=== PATIENT | female | born 1955 | race Two or more races ===

== ENCOUNTER 2024-04-11 09:05 | Emergency (ER) | payer MEDICARE, MEDICAID ==
[~2024-04-11] VITALS: Ht 152.4 cm; Wt 54.0 kg
[2024-04-11 11:02] LABS: Urine Bacteria None Seen /hpf (None Seen)
[2024-04-11 11:05] VITALS: BP 97/79; PULSE 95; RESP 18; TEMP 98; O2SAT 96
[2024-04-11 11:23] LABS: Basophils # (auto) 0 10 ^3/uL (0-0.2); Basophils % (auto) 0.4 % (0.0-2.0); Eosinophils # (auto) 0.1 10 ^3/uL (0-0.8); Eosinophils % (auto) 0.8 % (0.0-7.0); Hematocrit 42.5 % (36.0-46.0); Hemoglobin 14.3 g/dL (12.2-16.2); Lymphocytes # (auto) 1.3 10 ^3/uL (0.4-5.4); Lymphocytes % (auto) 21.1 % (10.0-50.0); Mean Corpuscular Hemoglobin 29.5 pg (28.0-32.0); Mean Corpuscular Hgb Conc. 33.6 g/dL (32.0-36.0); Mean Corpuscular Volume 87.8 fL (80.0-100.0); Monocytes # (auto) 0.3 10 ^3/uL (0-1.3); Monocytes % (auto) 4.9 % (0.0-12.0); Neutrophils # (auto) 4.4 10 ^3/uL (1.6-8.6); Neutrophils % (auto) 72.8 % (37.0-80.0); Nucleated Red Blood Cells % 0.1 %; Platelet Count (auto) 296 10^3/uL (140-450); Red Blood Cells 4.84 10^6/uL (4.0-5.20); Red Cell Distribution Width 15.2 % (11.8-14.3)
[2024-04-11 11:28] LABS: Urine Blood Negative /uL (Negative); Urine Clarity Turbid (Clear); Urine Color Yellow (Yellow); Urine Hyaline Cast FEW /lpf (0 - 2); Urine Mucus FEW (None Seen); Urine Protein, UAD TRACE (Negative); Urine Specific Gravity 1.024 (1.001-1.035); Urine Urobilinogen Normal (Negative); Urine WBC 4 /hpf (0 - 5); Urine pH 5.5 (5.0-9.0)
[2024-04-11] MEDS ORDERED: BACDST PO (11:40)
[2024-04-11] MEDS: HYDROcodone-ACET 5/325MG TAB PO ONE (11:40)
[2024-04-11] MEDS: cefTRIAXone SOD 1,000 MG VL IM ONE (11:40)
[2024-04-11] MEDS ORDERED: CEPH500C PO (11:40)
[2024-04-11] MEDS ORDERED: ALBU108A5 IN (11:40)
[2024-04-11] MEDS ORDERED: TRAM-626 PO (11:40)
--- NOTE | 2024-04-11 11:41 | ED.PDOC ---
WINE MANAGER HPI Comments A 68 YEAR OLD FEMALE PRESENTS TO THE ED WITH COMPLAINT OF VAGINAL REDNESS AND IRRITATION. PATIENT STATES SHE HAS A HISTORY OF CERVICAL CANCER, THE HAS DECLINED TO BE TREATED AT [facility]. PATIENT REPORTS SHE BEGAN TO EXPERIENCE VAGINAL REDNESS SKIN OPENINGS ABOUT 2 WEEKS AGO. PATIENT IS REQUESTING ANTIBIOTICS HERE IN THE ED. PATIENT DENIES DYSURIA, HEMATURIA, FEVER, CHILLS, SHORTNESS OF BREATH, CHEST PAIN, ABDOMINAL PAIN, NAUSEA, VOMITING, HEADACHE, OR OTHER COMPLAINTS. NO OTHER SYMPTOMS OR MODIFYING FACTORS AT THIS TIME. PATIENT IS ALERT, ORIENTED X 4, AND HAS STEADY GAIT. Chief Complaint: Vaginal Discharge Time Seen by MD: 10:11 Reviewed Notes: Nurses Notes, Medications, Allergies Allergies: Coded Allergies: NO KNOWN ALLERGIES (Unverified , 04/11/24) Home Meds Active Scripts Albuterol Sulfate (Albuterol Sulfate Hfa) 108 Mcg/Act Aer, 108 MCG IN TID, #120 AER Prov:MARIAELENA SIEGEL 04/11/24 Tramadol HCl (Tramadol HCl) 50 Mg Tab, 50 MG PO BID, #20 TAB Prov:MARIAELENA SIEGEL 04/11/24 Sulfamethoxazole W/Trimethopri (Bactrim Ds Tablet) 1 Tab Tb, 1 TAB PO BID, #20 TAB Prov:MARIAELENA SIEGEL 04/11/24 Cephalexin Monohydrate (Cephalexin) 500 Mg Cap, 1 CAP PO TID, #30 CAP Prov:MARIAELENA SIEGEL 04/11/24 Information Source: Patient Mode of Arrival: Wheelchair Timing: Days Prehospital treatment: None Severity: Moderate Vaginal Discharge: None Vaginal Lesions: None Vaginal Mass: None Onset Of Mass/Bleeding: Spontaneous Sexual Activity: Neither Last Consensual [place]: Unknown Control: None Blood Type: Unknown Symptoms of Possible : None Associated Signs and Symptoms: None Past Medical History PAST MEDICAL HISTORY: Asthma Past Medical History (Other): CERVICAL CANCER Surgical History: Denies all surgeries 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 Family History Family History: Reviewed,noncontributory to illness Social History Smoker: Cigarettes Alcohol: Denies ETOH Use Drugs: Denies Drug Use Lives In: Home Constitutional: denies: chills, diaphoresis, fatigue, fever, malaise, sweats, weakness, others EENTM: denies: blurred vision, double vision, ear bleeding, ear discharge, ear drainage, ear pain, ear ringing, eye pain, eye redness, hearing loss, mouth pain, mouth swelling, nasal discharge, nose bleeding, nose congestion, nose pain, photophobia, tearing, throat pain, throat swelling, voice changes, others Respiratory: denies: cough, hemoptysis, orthopnea, SOB at rest, shortness of breath, SOB with excertion, stridor, wheezing, others Cardiovascular: denies: chest pain, dizzy spells, diaphoresis, Dyspnea on exertion, edema, irregular heart beat, left arm pain, lightheadedness, palpitations, PND, syncope, others Gastrointestinal: denies: abdomen distended, abdominal pain, blood streaked bowels, constipated, diarrhea, dysphagia, difficulty swallowing, hematemesis, melena, nausea, poor appetite, poor fluid intake, rectal bleeding, rectal pain, vomiting, others Genitourinary: reports: pain (VAGINAL REDNESS AND PAIN); denies: abnormal vagina bleeding, burning, dyspareunia, dysuria, flank pain, frequency, hematuria, incontinence, , vagina discharge, urgency, others Neurological: denies: dizziness, fainting, headache, left sided numbness, left sided weakness, numbness, paresthesia, pre-existing deficit, right sided numbness, right sided weakness, seizure, speech problems, tingling, tremors, weakness, others Musculoskeletal: denies: back pain, gout, joint pain, joint swelling, muscle pain, muscle stiffness, neck pain, others Integumetry: reports: lesions, wounds; denies: bruises, change in color, change in hair/nails, dryness, laceration, lumps, rash, others Allergic/Immunocompromised: denies: Difficulty Healing, Frequent Infections, Hives, Itching, others Hematologic/Lymphatic: denies: anemia, blood clots, easy bleeding, easy bruising, swollen glands, others Endocrine: denies: excessive hunger, excessive sweating, excessive thirst, excessive urination, flushing, intolerance to cold, intolerance to heat, unexplained weight gain, unexplained weight loss, others Psychiatric: denies: anxiety, bipolar disorder, depression, hopeless, panic disorder, schizophrenia, sleepless, suicidal, others All Other Systems: Reviewed and Negative Physical Exam General Appearance: No Apparent Distress, Normal, Other (ANXIOUS ) HEENT: Normal ENT Inspection, PERRL/EOMI, Pharynx Normal, TMs Normal Neck: Full Range of Motion, Non-Tender, Normal, Normal Inspection Respiratory: Chest Non-Tender, Lungs Clear, No Accessory Muscle Use, No Respiratory Distress, Normal Breath Sounds Cardiovascular: No Edema, No JVD, No Murmur, No Gallop, Normal Peripheral Pulses, Regular Rate/Rhythm Breast Exam: Deferred Gastrointestinal: No Organomegaly, Non Tender, No Pulsatile Mass, Normal Bowel Sounds, Soft Genitalia: vagina lesion (MULTIPLE VAGINAL LESIONS WITH REDNESS AND SWELLING, NO PUS DRAINAGE AND DISCHARGE, NO VAGINAL DISCHARGE. ) Pelvic: Lesions (OLD VAGINAL LESIONS WITH LOCALIZED REDNESS AND MILD SWELLING, NO PUS DRAINAGE OR DISCHARGE. ) Rectal: Deferred Extremities: No calf tenderness, Normal capillary refill, Normal inspection, Normal range of motion, Non-tender, No pedal edema Musculoskeletal : Apperance: Normal Neurologic: Alert, rn hospital II-XII nml as Tested, No Motor Deficits, Normal Affect, Normal Mood, No Sensory Deficits Cerebellar Function: Normal Reflexes: Normal Skin: Dry, Normal Color, Warm Peripheral Pulses: 2+ carotid (R), 2+ carotid (L) Lymphatic: No Adenopathy Was a procedure done? 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) Vaginal Bleeding: N/A Mass / Lesion: Other Vaginal Discharge: UTI, Vaginitis - Bacterial, Vaginitis - Candidal, Vaginitis - Trichomonas X-Ray, Labs, Meds, VS Vital Signs Date Time Temp Pulse Resp B/P (MAP) Pulse Ox O2 Delivery O2 Flow Rate FiO2 04/11/24 11:05 98.0 95 18 97/79 (85) 96 98.0 04/11/24 11:05 95 18 96 Room Air 04/11/24 09:42 98.0 85 18 97/79 (85) 96 Lab Test 04/11/24 10:51 04/11/24 09:25 Range/Units White Blood Count 6.0 4.4-10.8 10^3/uL Red Blood Count 4.84 4.0-5.20 10^6/uL Hemoglobin 14.3 12.2-16.2 g/dL Hematocrit 42.5 36.0-46.0 % Mean Corpuscular Volume 87.8 80.0-100.0 fL Mean Corpuscular Hemoglobin 29.5 28.0-32.0 pg Mean Corpuscular Hemoglobin Concent 33.6 32.0-36.0 g/dL Red Cell Distribution Width 15.2 H 11.8-14.3 % Platelet Count 296 140-450 10^3/uL Mean Platelet Volume 7.7 6.9-10.8 fL Neutrophils (%) (Auto) 72.8 37.0-80.0 % Lymphocytes (%) (Auto) 21.1 10.0-50.0 % Monocytes (%) (Auto) 4.9 0.0-12.0 % Eosinophils (%) (Auto) 0.8 0.0-7.0 % Basophils (%) (Auto) 0.4 0.0-2.0 % Neutrophils # (Auto) 4.4 1.6-8.6 10 ^3/uL Lymphocytes # (Auto) 1.3 0.4-5.4 10 ^3/uL Monocytes # (Auto) 0.3 0-1.3 10 ^3/uL Eosinophils # (Auto) 0.1 0-0.8 10 ^3/uL Basophils # (Auto) 0 0-0.2 10 ^3/uL Nucleated Red Blood Cells 0.1 % Sodium Level Pending Potassium Level Pending Chloride Level Pending Carbon Dioxide Level Pending Anion Gap Pending Blood Urea Nitrogen Pending Creatinine Pending Glomerular Filtration Rate Calc Pending BUN/Creatinine Ratio Pending Serum Glucose Pending Calcium Level Pending Urine Color Yellow Yellow Urine Clarity Turbid H Clear Urine pH 5.5 5.0-9.0 Urine Specific [place] 1.024 1.001-1.035 Urine Protein Trace H Negative Urine Ketones Negative Negative Urine Blood Negative Negative /uL Urine Nitrite Negative Negative Urine Bilirubin Negative Negative Urine Urobilinogen Normal Negative mg/dL Urine Leukocyte Esterase 2+ Negative /uL Urine RBC 8 0 - 4 /hpf Urine WBC 4 0 - 5 /hpf Urine Squamous Epithelial Cells Few <5 /hpf Urine Bacteria None seen None Seen /hpf Urine Hyaline Casts Few 0 - 2 /lpf Urine Mucus Few None Seen Urine Glucose Normal Normal mg/dL Current Medications Medications (Trade) Dose Ordered Sig/Nic Route Start Time Stop Time Status Last Admin Ceftriaxone Sodium (Rocephin) 1,000 mg ONCE ONCE IM 04/11/24 11:45 04/11/24 11:46 DC 04/11/24 11:40 Acetaminophen/ Hydrocodone Bitart ([place] 5/325MG Tab) 1 tab ONCE ONCE PO 04/11/24 11:45 04/11/24 11:46 DC 04/11/24 11:40 X-Ray, Labs, Meds, VS Comment EXTERNAL NOTES: NONE LABS ORDERED: UA, WOUND CULTURE REVIEWED AND INTERPRETED RESULTS: NONE IMAGING ORDERED: NONE INDEPENDENT HISTORIANS: PATIENT'S DAUGHTER. TREATMENTS ORDERED: ROCEPHIN 1 G IM, NORCO 5/325 MG P.O. PATIENT'S CASE AND RESULTS HAVE BEEN DISCUSSED WITH THE ED ATTENDING PHYSICIAN AND THEY AGREE WITH MY PLAN OF CARE. PATIENT DECLINED TO BE ADMITTED AT THIS TIME SHE STATED SHE ONLY WANTED PAIN MEDICINE AND ANTIBIOTICS HERE IN THE ED. PATIENT WAS ALSO REQUESTING AN INHALER DUE TO HER HISTORY OF FREQUENT BRONCHITIS. I HAVE DISCUSSED LAB RESULTS WITH PATIENT AND HAVE INSTRUCTED THEM TO FOLLOW UP WITH THEIR PCP IN 1-2 DAYS. THE PATIENT FULLY UNDERSTANDS THEIR RESULTS AND ARE AWARE THEY NEED TO FOLLOW UP WITH THEIR PCP FOR FURTHER EVALUATION IF THEIR SYMPTOMS PERSIST. Time of 1ST Reevaluation: 12:00 Reevaluation 1ST: Improved Patient Education/Counseling: Diagnosis, Treatment, Need For Follow Up Family Education/Counseling: Diagnosis, Treatment, Need For Follow Up Medical Screening: No EMC Exist At This Time Departure 1 Departure Time of Disposition: 12:00 Impression: Primary Impression: Primary vaginal cancer Additional Impressions: Pain management Suspected soft tissue infection UTI (urinary tract infection) Qualified Codes: N30.00 - Acute cystitis without hematuria Disposition: HOME / SELF CARE / HOMELESS Condition: Stable Additional Instructions: FOLLOW-UP WITH PCP IN 1 TO 2 DAYS. TAKE MEDICATIONS PRESCRIBED. RETURN TO ED FOR ANY NEW OR WORSENING SYMPTOMS. e-Prescriptions Albuterol Sulfate (Albuterol Sulfate Hfa) 108 Mcg/Act Aer 108 MCG IN TID, #120 AER Prov: MARIAELENA SIEGEL 04/11/24 Tramadol HCl (Tramadol HCl) 50 Mg Tab 50 MG PO BID, #20 TAB Prov: MARIAELENA SIEGEL 04/11/24 Sulfamethoxazole W/Trimethopri (Bactrim Ds Tablet) 1 Tab Tb 1 TAB PO BID, #20 TAB Prov: MARIAELENA SIEGEL 04/11/24 Cephalexin Monohydrate (Cephalexin) 500 Mg Cap 1 CAP PO TID, #30 CAP Prov: MARIAELENA SIEGEL 04/11/24 Discharged With: Self, Relative Critical Care Note Critical Care Time?: No Stability Stability form required: No I personally scribed for MARIAELENA SIEGEL ([email or web address]) on 04/11/24 at 11:41. Electronically submitted by Arslan Fuentes ([email or web address]). MARIAELENA SIEGEL Apr 11, 2024 11:41
[2024-04-11 12:28] LABS: Chloride 105 mmol/L (98-107); Sodium 143 mmol/L (136-145)
[2024-04-11 12:29] LABS: Anion Gap 12 (5-15); Carbon Dioxide 26 mmol/L (20-31)
[2024-04-11 12:30] LABS: Calcium 10.3 mg/dL (8.7-10.4)
[2024-04-11 12:33] LABS: Potassium 3.3 mmol/L (3.5-5.1)
[2024-04-11] MEDS ORDERED: HYDR-4902 PO (12:33)
[2024-04-11 12:34] LABS: BUN/Creatinine Ratio 21.6 (10.0-20.0); Blood Urea Nitrogen 16 mg/dL (9-23)
[2024-04-11 12:36] LABS: Glucose 134 mg/dL (74-106)
== END 2024-04-11 11:53 | disposition home or self-care (01) ==
LOC: ER 09:05
DX: C52 Malignant neoplasm of vagina (principal); N89.8 Other specified noninflammatory disorders of vagina; N39.0 Urinary tract infection, site not specified; F17.210 Nicotine dependence, cigarettes, uncomplicated; J45.909 Unspecified asthma, uncomplicated; Z79.899 Other long term (current) drug therapy
CPT/HCPCS: 36415; 80048; 81001; 85025; 87070; 87077; 87186; 96372; 99283; J0696

== ENCOUNTER 2024-10-21 07:18 | Inpatient (IN) | payer MEDICARE, MEDICAID ==
[~2024-10-21] VITALS: Ht 152.4 cm; Wt 63.8 kg
[~2024-10-21 07:18] MED LIST: ALBU108A5 IN; BACDST PO; CEPH500C PO; HYDR-4902 PO
--- NOTE | 2024-10-21 09:14 | ED.PDOC ---
General HPI Comments 69 year old female with a Hx of Cancer and Asthma was BIB friend for the c/c of Bilateral Flank/Leg pain, and Dizziness. Pt states her symptoms have been onset for the past 4x days with no alleviating factors at this time. Pt also notes on pain and burning upon urination. No other associated symptoms, modifiers, recent injuries or sick contacts present at this time. Chief Complaint: Flank Pain Time Seen by MD: 09:10 Reviewed notes: Nurses Notes, Medications, Allergies Allergies: Coded Allergies: NO KNOWN ALLERGIES (Unverified , 04/11/24) Home Meds Active Scripts Hydrocodone-Acetaminophen (Hydrocodone Bitartrate/AC 5-325 mg) 1 Tab Tab, 1 TAB PO BID, #10 TAB Prov:MARIAELENA SIEGEL 04/11/24 Albuterol Sulfate (Albuterol Sulfate Hfa) 108 Mcg/Act Aer, 108 MCG IN TID, #120 AER Prov:MARIAELENA SIEGEL 04/11/24 Sulfamethoxazole W/Trimethopri (Bactrim Ds Tablet) 1 Tab Tb, 1 TAB PO BID, #20 TAB Prov:MARIAELENA SIEGEL 04/11/24 Cephalexin Monohydrate (Cephalexin) 500 Mg Cap, 1 CAP PO TID, #30 CAP Prov:MARIAELENA SIEGEL 04/11/24 Information Source: Patient Mode of Arrival: Ambulatory Severity: Moderate Inability to void: Mild Timing: Days Duration: Since onset, Days Has not urinated for: Hours Prehospital treatment: None Onset: Spontaneous Symptoms: Dysuria History of: None Location: (R) Flank, (L)Flank Modifying factors: None associated signs and symptoms: Flank Pain, Back Pain Past Medical History PAST MEDICAL HISTORY: Asthma, Cancer Surgical History: 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 Family History Family History: Reviewed,noncontributory to illness Social History Smoker: Cigarettes Alcohol: Denies ETOH Use Drugs: Denies Drug Use Lives In: Home Constitutional: denies: chills, diaphoresis, fatigue, fever, malaise, sweats, weakness, others EENTM: denies: blurred vision, double vision, ear bleeding, ear discharge, ear drainage, ear pain, ear ringing, eye pain, eye redness, hearing loss, mouth pain, mouth swelling, nasal discharge, nose bleeding, nose congestion, nose pain, photophobia, tearing, throat pain, throat swelling, voice changes, others Respiratory: denies: cough, hemoptysis, orthopnea, SOB at rest, shortness of breath, SOB with excertion, stridor, wheezing, others Cardiovascular: denies: chest pain, dizzy spells, diaphoresis, Dyspnea on exertion, edema, irregular heart beat, left arm pain, lightheadedness, palpitations, PND, syncope, others Gastrointestinal: denies: abdomen distended, abdominal pain, blood streaked bowels, constipated, diarrhea, dysphagia, difficulty swallowing, hematemesis, melena, nausea, poor appetite, poor fluid intake, rectal bleeding, rectal pain, vomiting, others Genitourinary: reports: dysuria, flank pain; denies: abnormal vagina bleeding, burning, dyspareunia, frequency, hematuria, incontinence, pain, , vagina discharge, urgency, others Neurological: denies: dizziness, fainting, headache, left sided numbness, left sided weakness, numbness, paresthesia, pre-existing deficit, right sided numbness, right sided weakness, seizure, speech problems, tingling, tremors, weakness, others Musculoskeletal: denies: back pain, gout, joint pain, joint swelling, muscle pain, muscle stiffness, neck pain, others Integumetry: denies: bruises, change in color, change in hair/nails, dryness, laceration, lesions, lumps, rash, wounds, others Allergic/Immunocompromised: denies: Difficulty Healing, Frequent Infections, Hives, Itching, others Hematologic/Lymphatic: denies: anemia, blood clots, easy bleeding, easy bruising, swollen glands, others Endocrine: denies: excessive hunger, excessive sweating, excessive thirst, excessive urination, flushing, intolerance to cold, intolerance to heat, unexplained weight gain, unexplained weight loss, others Psychiatric: denies: anxiety, bipolar disorder, depression, hopeless, panic disorder, schizophrenia, sleepless, suicidal, others All Other Systems: Reviewed and Negative Physical Exam General Appearance: Mild Distress, Normal, Obese, Other (Chornic ill appearing) HEENT: Normal ENT Inspection, Pharynx Normal, TMs Normal Neck: Full Range of Motion, Non-Tender, Normal Respiratory: Chest Non-Tender, Lungs Clear, No Accessory Muscle Use, No Respiratory Distress, Normal Breath Sounds Cardiovascular: No Edema, No JVD, Normal Peripheral Pulses, Regular Rate/Rhythm Breast Exam: Deferred Gastrointestinal: Non Tender, No Pulsatile Mass, Soft Genitalia: Deferred Pelvic: Deferred Rectal: Deferred Extremities: No calf tenderness, Normal range of motion, Non-tender, No pedal edema Musculoskeletal : Apperance: Normal Neurologic: Alert, No Motor Deficits, Normal Mood Cerebellar Function: Normal Reflexes: Normal Skin: Dry, Normal Color, Warm Lymphatic: No Adenopathy Was a procedure done? Was a procedure done?: No Differential Diagnosis Kidney stone (Female): Musculoskeletal pain, Pancreatitis, Renal failure, Urinary obstruction, Urolithiasis Urinary Problem (Female): Appendicitis, Impaction, Pyelonephritis, Urinary retention, Urolithiasis, UTI, Vaginitis X-Ray, Labs, Meds, VS Vital Signs Date Time Temp Pulse Resp B/P (MAP) Pulse Ox O2 Delivery O2 Flow Rate FiO2 10/21/24 11:00 97.4 67 18 142/93 (109) 97 97.4 10/21/24 08:54 70 18 10/21/24 08:54 98.8 70 18 128/92 (104) 94 98.8 10/21/24 08:06 97.6 80 18 135/91 (106) 95 97.6 Lab Test 10/21/24 10:00 10/21/24 09:00 Range/Units Urine Color Yellow Yellow Urine Clarity Clear Clear Urine pH 5.5 5.0-9.0 Urine Specific [place] 1.024 1.001-1.035 Urine Protein Negative Negative Urine Ketones Trace Negative Urine Blood Negative Negative /uL Urine Nitrite Negative Negative Urine Bilirubin Negative Negative Urine Urobilinogen Normal Negative mg/dL Urine Leukocyte Esterase 2+ Negative /uL Urine RBC 2 0 - 4 /hpf Urine Microscopic WBC 1 0-5 /HPF Urine Squamous Epithelial Cells Few <5 /hpf Urine Calcium Oxalate Crystals Few None Seen Urine Bacteria None seen None Seen /hpf Urine Hyaline Casts Few 0 - 2 /lpf Urine Mucus Few None Seen Urine Yeast (Budding) Occasional None Seen /hpf Urine Glucose Normal Normal mg/dL White Blood Count 6.9 4.4-10.8 10^3/uL Red Blood Count 5.00 4.0-5.20 10^6/uL Hemoglobin 14.8 12.2-16.2 g/dL Hematocrit 44.6 36.0-46.0 % Mean Corpuscular Volume 89.0 80.0-100.0 fL Mean Corpuscular Hemoglobin 29.6 28.0-32.0 pg Mean Corpuscular Hemoglobin Concent 33.2 32.0-36.0 g/dL Red Cell Distribution Width 15.5 H 11.8-14.3 % Platelet Count 306 140-450 10^3/uL Mean Platelet Volume 7.2 6.9-10.8 fL Neutrophils (%) (Auto) 74.4 37.0-80.0 % Lymphocytes (%) (Auto) 19.3 10.0-50.0 % Monocytes (%) (Auto) 4.4 0.0-12.0 % Eosinophils (%) (Auto) 1.4 0.0-7.0 % Basophils (%) (Auto) 0.5 0.0-2.0 % Neutrophils # (Auto) 5.1 1.6-8.6 10 ^3/uL Lymphocytes # (Auto) 1.3 0.4-5.4 10 ^3/uL Monocytes # (Auto) 0.3 0-1.3 10 ^3/uL Eosinophils # (Auto) 0.1 0-0.8 10 ^3/uL Basophils # (Auto) 0 0-0.2 10 ^3/uL Nucleated Red Blood Cells 0.0 % Sodium Level 143 136-145 mmol/L Potassium Level 3.6 3.5-5.1 mmol/L Chloride Level 109 H 98-107 mmol/L Carbon Dioxide Level 26 20-31 mmol/L Anion Gap 8 5-15 Blood Urea Nitrogen 14 9-23 mg/dL Creatinine 0.62 0.550-1.02 mg/dL Glomerular Filtration Rate Calc 96 >90 mL/min BUN/Creatinine Ratio 22.6 H 10.0-20.0 Serum Glucose 95 74-106 mg/dL Lactic Acid Level 1.3 0.4-2.0 mmol/L Calcium Level 10.2 8.7-10.4 mg/dL Time of 1ST Reevaluation: 09:40 Reevaluation 1ST: Unchanged Patient Education/Counseling: Diagnosis, Treatment Family Education/Counseling: Diagnosis, Treatment SEPSIS Sepsis Screen Date sepsis recognized/suspect: Oct 21, 2024 Time Sepsis recognized/suspect: 0734 Recent Procedure: No On Antibiotic Therapy: No Respiratory Rate >20: No Heart Rate >90: No Temp<36 C (96.8 F) or >38.3 C: No SBP <90 or MAP <65 mmHG: No New Acute Mental Status Change: No Is the patient on CPAP, BIPAP,: No Orders/Vitals/Labs Physician Orders Blood Culture (10/21/24 08:14) Ct Ab Pel With Iv Con Only (10/21/24 10:25) Vital Signs Date Time Temp Pulse Resp B/P (MAP) Pulse Ox O2 Delivery O2 Flow Rate FiO2 10/21/24 11:00 97.4 67 18 142/93 (109) 97 97.4 10/21/24 08:54 70 18 10/21/24 08:54 98.8 70 18 128/92 (104) 94 98.8 10/21/24 08:06 97.6 80 18 135/91 (106) 95 97.6 Laboratory Tests Test 10/21/24 09:00 Lactic Acid Level 1.3 mmol/L (0.4-2.0) White Blood Count 6.9 10^3/uL (4.4-10.8) Departure 1 Departure Time of Disposition: 11:43 (Patient presented with abdominal pain that was concerning for possible appendicits, gastritis, cholecystitis, colitis, gastroe nteritis, sbo, or orther possible surgical emergency. Data: 1. I ordered and reviewed the result of at least 3 labs including a CBC, BMP, and Urinalysis. 2. I independently interpreted the following tests: CT Abdoment and Pelvis is concerning for splenic artery aneurysm .Risk:This patient has a high risk of morbidity due to further diagnostic testing or treatment and may suffer from an acute abdominal process disorder. Workup reveals intractable abdominal pain and splenic artery aneurysm and patient should be admitted for further workup. and possible expert consultation. ) Impression: Primary Impression: Splenic artery aneurysm Additional Impression: Intractable abdominal pain Disposition: ADMITTED INPATIENT Admit to: Med Surg Condition: Guarded Critical Care Note Critical Care Time?: Yes Critical care comment: Intractable abdominal pain Authorized and Performed by: Kirk Dumont MD Total critical care time: Approximately 49 minutes Due to a high probability of clinically significant, life threatening deterioration, the patient required my highest level of preparedness to intervene emergently and I personally spent this critical care time directly and personally managing the patient. This critical care time included obtaining a history; examining the patient; pulse oximetry; ordering and review of studies; arranging urgent treatment with development of a management plan; evaluation of patient's response to treatment; frequent reassessment; and, discussions with other providers. This critical care time was performed to assess and manage the high probability of imminent, life-threatening deterioration that could result in multi-organ failure. It was exclusive of separately billable procedures and treating other patients and teaching time. Please see my other sections and the rest of the note for further information on patient assessment and treatment. Stability Stability form required: No Heart Score Heart Score: Heart Score Response (Comments) Value History N/A 0 EKG N/A 0 Age N/A 0 Risk Factors N/A 0 Troponin N/A 0 Total 0 I personally scribed for KIRK DUMONT MD ([email or web address]) on 10/21/24 at 09:14. Electronically submitted by Cliff Seaman ([email or web address]). KIRK DUMONT MD Oct 21, 2024 09:14
[2024-10-21 09:23] LABS: Basophils # (auto) 0 10 ^3/uL (0-0.2); Basophils % (auto) 0.5 % (0.0-2.0); Eosinophils # (auto) 0.1 10 ^3/uL (0-0.8); Eosinophils % (auto) 1.4 % (0.0-7.0); Hematocrit 44.6 % (36.0-46.0); Hemoglobin 14.8 g/dL (12.2-16.2); Lymphocytes # (auto) 1.3 10 ^3/uL (0.4-5.4); Lymphocytes % (auto) 19.3 % (10.0-50.0); Mean Corpuscular Hemoglobin 29.6 pg (28.0-32.0); Mean Corpuscular Hgb Conc. 33.2 g/dL (32.0-36.0); Monocytes # (auto) 0.3 10 ^3/uL (0-1.3); Monocytes % (auto) 4.4 % (0.0-12.0); Neutrophils # (auto) 5.1 10 ^3/uL (1.6-8.6); Neutrophils % (auto) 74.4 % (37.0-80.0); Platelet Count (auto) 306 10^3/uL (140-450); Red Cell Distribution Width 15.5 % (11.8-14.3); White Blood Cell 6.9 10^3/uL (4.4-10.8)
[2024-10-21 09:27] LABS: Potassium 3.6 mmol/L (3.5-5.1); Sodium 143 mmol/L (136-145)
[2024-10-21 09:28] LABS: Anion Gap 8 (5-15); Carbon Dioxide 26 mmol/L (20-31)
[2024-10-21 09:29] LABS: Calcium 10.2 mg/dL (8.7-10.4)
[2024-10-21 09:33] LABS: BUN/Creatinine Ratio 22.6 (10.0-20.0); Blood Urea Nitrogen 14 mg/dL (9-23); Glucose 95 mg/dL (74-106)
[2024-10-21 09:40] LABS: Chloride 109 mmol/L (98-107)
[2024-10-21 10:00] LABS: Urine Bacteria None Seen /hpf (None Seen)
[2024-10-21 10:12] LABS: Urine Blood Negative /uL (Negative); Urine Budding Yeast OCCASIONAL /hpf (None Seen); Urine Clarity Clear (Clear); Urine Color Yellow (Yellow); Urine Hyaline Cast FEW /lpf (0 - 2); Urine Mucus FEW (None Seen); Urine Protein, UAD Negative (Negative); Urine Specific Gravity 1.024 (1.001-1.035); Urine Squamous Epithelial Cell FEW /hpf (<5); Urine Urobilinogen Normal (Negative); Urine WBC 1 /HPF (0-5); Urine pH 5.5 (5.0-9.0)
--- NOTE | 2024-10-21 11:19 | DVH ---
Exam: CT CT AB PEL WITH IV CON ONLY History: flank pain, COMPARISON: None Technique: Multidetector spiral CT of the abdomen and pelvis was performed from lung bases to pubic symphysis. Intravenous contrast was administered during this examination. Portal venous imaging was obtained. Axial, coronal and sagittal multiplanar reformats were performed by the technologist on a separate workstation. Radiation Dose : Abdomen/Pelvis: CTDIvol 8.14 mGy, DLP 363.74 mGy*cm. CONTRAST: Type of contrast: Omni 300 Contrast injected: 100 mL Findings: Lung Bases: No acute or significant lung base finding. Normal heart size. No pleural or pericardial effusion. Liver: Subcentimeter left hepatic cyst. Hypodensity along the falciform ligament likely represents fo elisabeth fatty infiltration. Gallbladder and biliary Tree: Cholelithiasis noted without secondary findings of cholecystitis or pedro pablo iary obstruction. Spleen: Unremarkable Pancreas: The pancreas is normal in appearance without focal lesions or abnormal enhancement. Adrenal Glands: Unremarkable Kidneys: No hydronephrosis. Bladder: Unremarkable Bowel: The stomach is grossly normal in appearance. Small bowel and colon are normal in caliber and d istribution. Normal appendix is visualized in the right lower quadrant without findings of appendicit is. Ascites: Absent Lymphadenopathy: No mesenteric, retroperitoneal or periportal lymphadenopathy. Abdominal wall and Mesentery: Unremarkable. Vasculature: Peripherally calcified distal splenic artery aneurysm measuring up to 15 mm. Possible 2n d splenic artery aneurysm measuring subcentimeter. Pelvic Organs: Unremarkable Musculoskeletal: Grade 1 anterolisthesis of L4 on L5 and L5 on S1. Multilevel degenerative disease. IMPRESSION: 1. No acute abdominal or pelvic finding. 2. Left hepatic cysts. Likely focal fatty infiltration in the liver along the falciform ligament. C holelithiasis. 3. Distal splenic artery aneurysm measuring up to 15 mm. This can be further evaluated with CTA of th e abdomen. Vascular surgery and/or interventional radiology evaluation is recommended. 4. Grade 1 anterolisthesis of L4 on L5 and L5 on S1. Radiation optimization: All CT scans at this facility use at least one of these dose optimization shamika hniques: Automated exposure control mA and/or kV adjustment per patient size (includes targeted exams where dose is matched to clinical indication) or iterative reconstruction. HS:Y
[2024-10-21] MEDS: IOHEXOL 300 MG/ML 100ML BOTTLE IJ ONE (11:58)
[2024-10-21] MEDS: ONDANSETRON HCL 4 MG/2 ML VIAL IV ONE (11:59)
[2024-10-21] MEDS: SODIUM CHLORIDE 0.9% 1,000 ML IV ONE (12:00)
[2024-10-21] MEDS: MORPHINE SULFATE 4 MG/ML SYR/VIAL IV ONE (12:00)
[2024-10-21] MEDS ORDERED: ONDANSETRON HCL 4 MG/2 ML VIAL IV PRN (15:00)
[2024-10-21] MEDS ORDERED: ACETAMINOPHEN 325 MG TAB PO PRN (15:00)
--- NOTE | 2024-10-21 15:14 | DVHHP2 ---
History of Present Illness Reason for Visit: Abdominal pain, back pain History of Present Illness Catrina Burgess is a 69-year-old female with past medical history of vulvar cancer, who came to the hospital for abdominal and back pain. Patient states she gets intermittent abdominal pain, and that she just started having back pain a couple days ago and it is worsening. She states the pain is shooting down the back of her legs. She also complains of pain with urination. She states that with the cancer she will have sores that open from time to time and when they do it makes it painful to urinate and ambulate because her legs rub the wounds. CT of abdomen shows a 15mm splenic aneurysm, spoke with interventional radiologist, Dr. Ramirez, he stated it looks stable and should just be monitored. Recommend for a follow up CT in 6 months. Heme/Onc: Cancer (vulvar) Past Surgical History: None Smoke: <1 pack per day ALCOHOL: rare Drugs: None Lives: with Family Domestic Violence: Neg Review of Systems Constitutional: No: Fever, Chills, Sweats, Weakness, Malaise, Other Eyes: No: Pain, Vision change, Conjunctivae inflammation, Eyelid inflammation, Other, Redness ENT: No: Ear pain, Ear discharge, Nose pain, Nose discharge, Nose congestion, M outh pain, Mouth swelling, Throat pain, Throat swelling, Other Respiratory: No: Cough, Dry, Shortness of breath, SOB with excertion, Wheezing, Hemoptysis, Pleuritic Pain, Sputum, Wheezing, Other Cardiovascular: No: Chest Pain, Palpitations, Orthopnea, Paroxysmal Noc. Dyspnea, Edema, Lt Headedness, Other Gastrointestinal: Abdominal Pain; No: Nausea, Vomiting, Diarrhea, Constipation, Melena, Hematochezia, Other Genitourinary: Dysuria; No Frequency, No Incontinence, No Hematuria, No Retention, No Other Musculoskeletal: back pain; No: other, neck pain, shoulder pain, arm pain, hand pain, leg pain, foot pain Skin: No: Rash, Lesions, Jaundice, Bruising, Other Neurological: No: Weakness, Numbness, Incoordination, Change in speech, Confusion, Seizures, Other Allergies: Coded Allergies: NO KNOWN ALLERGIES (Unverified , 04/11/24) Exam Vital Signs Vital Signs Date Time Temp Pulse Resp B/P (MAP) Pulse Ox O2 Delivery O2 Flow Rate FiO2 10/21/24 12:58 60 20 179/52 (94) 96 10/21/24 11:00 97.4 97.4 General Appearance: Alert, Oriented X3, Cooperative, mild distress HEENT: Atraumatic, PERRLA Respiratory: Clear to auscultation, Normal air movement Cardiovascular: Regular rate, Normal S1, Normal S2, No murmurs Abdominal: Normal bowel sounds, Soft Extremities: No clubbing, No cyanosis, No edema Neuro: Normal speech, Other (C/O Pain with ambulation due to vulvar cancer) Psych/Mental Status: Mental status NL, Mood NL Labs/Xrays Labs Test 10/21/24 10:00 10/21/24 09:00 Range/Units Urine Color Yellow Yellow Urine Clarity Clear Clear Urine pH 5.5 5.0-9.0 Urine Specific [place] 1.024 1.001-1.035 Urine Protein Negative Negative Urine Ketones Trace Negative Urine Blood Negative Negative /uL Urine Nitrite Negative Negative Urine Bilirubin Negative Negative Urine Urobilinogen Normal Negative mg/dL Urine Leukocyte Esterase 2+ Negative /uL Urine RBC 2 0 - 4 /hpf Urine Microscopic WBC 1 0-5 /HPF Urine Squamous Epithelial Cells Few <5 /hpf Urine Calcium Oxalate Crystals Few None Seen Urine Bacteria None seen None Seen /hpf Urine Hyaline Casts Few 0 - 2 /lpf Urine Mucus Few None Seen Urine Yeast (Budding) Occasional None Seen /hpf Urine Glucose Normal Normal mg/dL White Blood Count 6.9 4.4-10.8 10^3/uL Red Blood Count 5.00 4.0-5.20 10^6/uL Hemoglobin 14.8 12.2-16.2 g/dL Hematocrit 44.6 36.0-46.0 % Mean Corpuscular Volume 89.0 80.0-100.0 fL Mean Corpuscular Hemoglobin 29.6 28.0-32.0 pg Mean Corpuscular Hemoglobin Concent 33.2 32.0-36.0 g/dL Red Cell Distribution Width 15.5 H 11.8-14.3 % Platelet Count 306 140-450 10^3/uL Mean Platelet Volume 7.2 6.9-10.8 fL Neutrophils (%) (Auto) 74.4 37.0-80.0 % Lymphocytes (%) (Auto) 19.3 10.0-50.0 % Monocytes (%) (Auto) 4.4 0.0-12.0 % Eosinophils (%) (Auto) 1.4 0.0-7.0 % Basophils (%) (Auto) 0.5 0.0-2.0 % Neutrophils # (Auto) 5.1 1.6-8.6 10 ^3/uL Lymphocytes # (Auto) 1.3 0.4-5.4 10 ^3/uL Monocytes # (Auto) 0.3 0-1.3 10 ^3/uL Eosinophils # (Auto) 0.1 0-0.8 10 ^3/uL Basophils # (Auto) 0 0-0.2 10 ^3/uL Nucleated Red Blood Cells 0.0 % Sodium Level 143 136-145 mmol/L Potassium Level 3.6 3.5-5.1 mmol/L Chloride Level 109 H 98-107 mmol/L Carbon Dioxide Level 26 20-31 mmol/L Anion Gap 8 5-15 Blood Urea Nitrogen 14 9-23 mg/dL Creatinine 0.62 0.550-1.02 mg/dL Glomerular Filtration Rate Calc 96 >90 mL/min BUN/Creatinine Ratio 22.6 H 10.0-20.0 Serum Glucose 95 74-106 mg/dL Lactic Acid Level 1.3 0.4-2.0 mmol/L Calcium Level 10.2 8.7-10.4 mg/dL Exam: CT CT AB PEL WITH IV CON ONLY Findings: Lung Bases: No acute or significant lung base finding. Normal heart size. No pleural or pericardial effusion. Liver: Subcentimeter left hepatic cyst. Hypodensity along the falciform ligament likely represents focal fatty infiltration. Gallbladder and biliary Tree: Cholelithiasis noted without secondary findings of cholecystitis or biliary obstruction. Spleen: Unremarkable Pancreas: The pancreas is normal in appearance without focal lesions or abnormal enhancement. Adrenal Glands: Unremarkable Kidneys: No hydronephrosis. Bladder: Unremarkable Bowel: The stomach is grossly normal in appearance. Small bowel and colon are normal in caliber and distribution. Normal appendix is visualized in the right lower quadrant without findings of appendicitis. Ascites: Absent Lymphadenopathy: No mesenteric, retroperitoneal or periportal lymphadenopathy. Abdominal wall and Mesentery: Unremarkable. Vasculature: Peripherally calcified distal splenic artery aneurysm measuring up to 15 mm. Possible 2nd splenic artery aneurysm measuring subcentimeter. Pelvic Organs: Unremarkable Musculoskeletal: Grade 1 anterolisthesis of L4 on L5 and L5 on S1. Multilevel degenerative disease. IMPRESSION: 1. No acute abdominal or pelvic finding. 2. Left hepatic cysts. Likely focal fatty infiltration in the liver along the falciform ligament. Cholelithiasis. 3. Distal splenic artery aneurysm measuring up to 15 mm. This can be further evaluated with CTA of the abdomen. Vascular surgery and/or interventional radiology evaluation is recommended. 4. Grade 1 anterolisthesis of L4 on L5 and L5 on S1. Assessment/Plan Assessment/Plan Assessment: Intractable abdominal pain, Splenic artery aneurism, Vulvar cancer, Open wound, Plan: Admit to Med-Surg, Wound care consult, Wound culture, Blood culture, IV antibiotics, Pain management, States she does not take any home medications Plan discussed with: Patient, Daughter My Orders Orders - SUKH TURCIOS Procedure Category Date Status Time Admit ADMIT 10/21/24 Transmitted 14:54 Code Status CODE 10/21/24 Transmitted 14:54 Hydrocodone-Acet PHA 10/21/24 Transmitted 5/325mg Tab ([place] 15:00 Ondansetron Hcl PHA 10/21/24 Transmitted (Zofran) 15:00 Docusate Sodium PHA 10/21/24 Transmitted Capsule ([place] 15:00 Complete Blood Count LAB 10/22/24 Verified 04:00 Comprehensive LAB 10/22/24 Verified Metabolic Panel 04:00 Condition: Serious PEEWEE 10/21/24 Transmitted 14:54 Acetaminophen Tablet PHA 10/21/24 Transmitted (Tylenol Tablet) 15:00 * Wound Consult CONS 10/21/24 Transmitted Wound Culture W/ Gs CHRISTOPHER 10/21/24 Transmitted 14:54 Ceftriaxone Ivpb PHA 10/22/24 Transmitted Rocephin 09:00 Ceftriaxone Ivpb PHA 10/21/24 Transmitted Rocephin 15:00 Date of Service: Oct 21, 2024 Billing Provider: SUKH TURCIOS Common Visit Codes: [id number] INP/OBS CARE (MOD) SUKH TURCIOS Oct 21, 2024 15:13
[2024-10-21] MEDS: cefTRIAXone 1GM/50ML D5W 50 ML IV ONE (16:00)
[2024-10-21] MEDS: HYDROcodone-ACET 5/325MG TAB PO PRN (18:33)
[2024-10-21 18:49] VITALS: TEMP 98.9
[2024-10-21 20:00] VITALS: RESP 18; O2SAT 98
[2024-10-21 21:00] VITALS: BP 150/84; PULSE 73; RESP 18; TEMP 97.9; O2SAT 94
[2024-10-21] MEDS ORDERED: KETOROLAC TROMETH 30 MG/ML 1ML VIAL IV ONE (21:30)
[2024-10-22] VITALS (8 sets, daily range): BP systolic 116–141; BP diastolic 49–81; PULSE 56–69; RESP 16–18; TEMP 97.1–98; O2SAT 92–98
[2024-10-22 07:08] LABS: Basophils # (auto) 0 10 ^3/uL (0-0.2); Basophils % (auto) 0.6 % (0.0-2.0); Eosinophils # (auto) 0.2 10 ^3/uL (0-0.8); Eosinophils % (auto) 3.8 % (0.0-7.0); Hematocrit 37.8 % (36.0-46.0); Hemoglobin 12.7 g/dL (12.2-16.2); Lymphocytes % (auto) 36.5 % (10.0-50.0); Mean Corpuscular Hemoglobin 29.7 pg (28.0-32.0); Mean Corpuscular Hgb Conc. 33.6 g/dL (32.0-36.0); Mean Corpuscular Volume 88.4 fL (80.0-100.0); Monocytes # (auto) 0.4 10 ^3/uL (0-1.3); Monocytes % (auto) 6.9 % (0.0-12.0); Neutrophils # (auto) 2.9 10 ^3/uL (1.6-8.6); Neutrophils % (auto) 52.2 % (37.0-80.0); Nucleated Red Blood Cells % 0.1 %; Platelet Count (auto) 273 10^3/uL (140-450); Red Blood Cells 4.27 10^6/uL (4.0-5.20); Red Cell Distribution Width 15.3 % (11.8-14.3); White Blood Cell 5.5 10^3/uL (4.4-10.8)
[2024-10-22 07:36] LABS: Albumin 3.7 g/dL (3.2-4.8); Alkaline Phosphatase 87 U/L (46-116); Anion Gap 9 (5-15); Aspartate Aminotransferase 10 U/L (<34); BUN/Creatinine Ratio 32.3 (10.0-20.0); Blood Urea Nitrogen 20 mg/dL (9-23); Calcium 9.8 mg/dL (8.7-10.4); Carbon Dioxide 29 mmol/L (20-31); Glucose 84 mg/dL (74-106); Potassium 3.7 mmol/L (3.5-5.1); Sodium 145 mmol/L (136-145); Total Protein 5.7 g/dL (5.7-8.2)
[2024-10-22 07:37] LABS: Bilirubin, Total 0.3 mg/dL (0.2-1.0)
[2024-10-22 07:40] LABS: Alanine Aminotransferase < 9 U/L (7-40); Chloride 107 mmol/L (98-107)
[2024-10-22] MEDS: cefTRIAXone 1GM/50ML D5W 50 ML IV SCH (10:16)
--- NOTE | 2024-10-22 10:47 | DVHPN2 ---
Subjective Seen and examined at bedside, c/o 10/10 pain in the vulvar area and back pain. 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 I spoke with the patients daughter, discussed plan of care. Changes from previous H/P or p: No Changes Eyes: No Pain, No Vision change, No Conjunctivae inflammation, No Eyelid inflammation, No Other, No Redness ENT: No Ear pain, No Ear discharge, No Nose pain, No Nose discharge, No Nose congestion, No Mouth pain, No Mouth swelling, No Throat pain, No Throat swelling, No Other Cardiovascular: No Chest Pain, No Palpitations, No Orthopnea, No Paroxysmal Noc. Dyspnea, No Edema, No Lt Headedness, No Other Respiratory: No Cough, No Dry, No Shortness of breath, No SOB with excertion, No Wheezing, No Hemoptysis, No Pleuritic Pain, No Sputum, No Other Gastrointestinal: No Nausea, No Vomiting; Abdominal Pain; No Diarrhea, No Constipation, No Melena, No Hematochezia, No Other Genitourinary: Dysuria; No Frequency, No Incontinence, No Hematuria, No Retention, No Other Musculoskeletal: No other, No neck pain, No shoulder pain, No arm pain; back pain; No hand pain, No leg pain, No foot pain Skin: No Rash, No Lesions, No Jaundice, No Bruising, No Other Objective Vitals Vital Signs Date Time Temp Pulse Resp B/P (MAP) Pulse Ox O2 Delivery O2 Flow Rate FiO2 10/22/24 09:00 98.0 56 18 116/55 (75) 93 98.0 10/21/24 20:00 Room Air* 0 21 Intake/Output Intake and Output 10/22/24 07:00 Intake Total 200 ml Balance 200 ml Intake Oral 200 ml # Voids 2 General Appearance: Alert, Oriented X3, Cooperative Lungs: Clear to auscultation Cardiovascular: Regular rate, Normal S1, Normal S2 Abdomen: Normal bowel sounds, Soft Skin: Other (see nursing notes) Psych/Mental Status: Mental status NL Medications Current Medications Medications Dose Ordered Sig/Nic Route Start Time Stop Time Status Last Admin Dose Admin Acetaminophen/ Hydrocodone Bitart 1 tab Q4HP PRN PO 10/21/24 15:00 10/22/24 06:18 1 TAB Ondansetron HCl 4 mg Q4HP PRN IV 10/21/24 15:00 Docusate Sodium 100 mg BIDPRN PRN PO 10/21/24 15:00 Acetaminophen 650 mg Q6HP PRN PO 10/21/24 15:00 Ceftriaxone Sodium 50 ml @ 100 mls/hr DAILY@09 IV 10/22/24 09:00 10/22/24 10:16 100 MLS/HR Laboratory Results Laboratory Tests 10/22/24 04:29 Chemistry Test 10/22/24 04:29 Albumin 3.7 g/dL (3.2-4.8) Calcium Level 9.8 mg/dL (8.7-10.4) Total Protein 5.7 g/dL (5.7-8.2) LFT Test 10/22/24 04:29 Alanine Aminotransferase (ALT) < 9 U/L (7-40) Alkaline Phosphatase 87 U/L (46-116) Aspartate Amino Transferase (AST) 10 U/L (<34) Total Bilirubin 0.3 mg/dL (0.2-1.0) Urinalysis Test 10/21/24 10:00 Urine Color Yellow (Yellow) Urine Clarity Clear (Clear) Urine pH 5.5 (5.0-9.0) Urine Specific [place] 1.024 (1.001-1.035) Urine Protein Negative (Negative) Urine Ketones Trace (Negative) Urine Blood Negative /uL (Negative) Urine Nitrite Negative (Negative) Urine Bilirubin Negative (Negative) Urine Urobilinogen Normal mg/dL (Negative) Urine Leukocyte Esterase 2+ /uL (Negative) Urine RBC 2 /hpf (0 - 4) Urine Microscopic WBC 1 /HPF (0-5) Urine Squamous Epithelial Cells Few /hpf (<5) Urine Calcium Oxalate Crystals Few (None Seen) Urine Bacteria None seen /hpf (None Seen) Urine Hyaline Casts Few /lpf (0 - 2) Urine Mucus Few (None Seen) Urine Yeast (Budding) Occasional /hpf (None Urine Glucose Normal mg/dL (Normal) Microbiology Microbiology Date/Time Source Procedure Growth Status 10/21/24 09:00 Blood Blood Culture - Preliminary NO GROWTH AFTER 24 HOURS OF INCUBATION. Resulted Assessment/Plan Assessment/Plan # Vulvular Cancer - Pain Control - Refusing treatment # Intractable pain # Acute Cystitis - Rocephin # Goals of care discussion >18 mins FULL CODE Plan discussed with: Patient, Daughter My Orders Orders - PRIETO PANIAGUA MD Procedure Category Date Status Time Enoxaparin Sodium PHA 10/23/24 Verified (Lovenox) 10:00 Date of Service: Oct 22, 2024 Billing Provider: PRIETO PANIAGUA MD Common Visit Codes: [id number] INP/OBS CARE(HIGH) Secondary Visit Codes: [id number] CARE PLAN 30 MINUTES PRIETO PANIAGUA MD Oct 22, 2024 10:47
[2024-10-22] MEDS: GABAPENTIN 300 MG CAP PO ONE (12:26)
[2024-10-22] MEDS: HYDROcodone-ACET 10/325MG TAB PO PRN (12:26)
[2024-10-22] MEDS: GABAPENTIN 300 MG CAP PO SCH (21:12)
[2024-10-23] VITALS (7 sets, daily range): BP systolic 124–165; BP diastolic 55–91; PULSE 55–82; RESP 17–18; TEMP 97.1–98.3; O2SAT 94–100
[2024-10-23] MEDS: DOCUSATE SOD 100 MG CAP PO PRN (08:49)
[2024-10-23] MEDS: ENOXAPARIN SOD 40 MG/0.4 ML SYRINGE SC SCH (08:50)
--- NOTE | 2024-10-23 16:58 | DVHPN2 ---
Subjective Seen and examined at bedside, discussed case with vascular surgery, no surgical indication at this time. Pain likely due to chronic lumbar stenosis. Changes from previous H/P or p: No Changes Eyes: No Pain, No Vision change, No Conjunctivae inflammation, No Eyelid inflammation, No Other, No Redness ENT: No Ear pain, No Ear discharge, No Nose pain, No Nose discharge, No Nose congestion, No Mouth pain, No Mouth swelling, No Throat pain, No Throat swelling, No Other Cardiovascular: No Chest Pain, No Palpitations, No Orthopnea, No Paroxysmal Noc. Dyspnea, No Edema, No Lt Headedness, No Other Respiratory: No Cough, No Dry, No Shortness of breath, No SOB with excertion, No Wheezing, No Hemoptysis, No Pleuritic Pain, No Sputum, No Other Gastrointestinal: No Nausea, No Vomiting, No Diarrhea, No Constipation, No Melena, No Hematochezia, No Other Genitourinary: No Frequency, No Incontinence, No Hematuria, No Retention, No Other Musculoskeletal: No other, No neck pain, No shoulder pain, No arm pain; back pain; No hand pain, No leg pain, No foot pain Skin: No Rash, No Lesions, No Jaundice, No Bruising, No Other Objective Vitals Vital Signs Date Time Temp Pulse Resp B/P (MAP) Pulse Ox O2 Delivery O2 Flow Rate FiO2 10/23/24 13:00 98.2 65 17 165/69 (101) 96 98.2 10/22/24 20:00 Room Air* 0 21 Intake/Output Intake and Output 10/23/24 07:00 Intake Total 1050 ml Balance 1050 ml Intake Oral 1000 ml IV Total 50 ml # Voids 6 General Appearance: Alert, Oriented X3, Cooperative Lungs: Clear to auscultation Cardiovascular: Regular rate, Normal S1, Normal S2 Abdomen: Normal bowel sounds, Soft Skin: Other (see nursing notes) Psych/Mental Status: Mental status NL Medications Current Medications Medications Dose Ordered Sig/Nic Route Start Time Stop Time Status Last Admin Dose Admin Acetaminophen/ Hydrocodone Bitart 1 tab Q4HP PRN PO 10/21/24 15:00 10/22/24 06:18 1 TAB Ondansetron HCl 4 mg Q4HP PRN IV 10/21/24 15:00 Docusate Sodium 100 mg BIDPRN PRN PO 10/21/24 15:00 10/23/24 08:49 100 MG Acetaminophen 650 mg Q6HP PRN PO 10/21/24 15:00 Ceftriaxone Sodium 50 ml @ 100 mls/hr DAILY@09 IV 10/22/24 09:00 10/23/24 10:40 100 MLS/HR Enoxaparin Sodium 40 mg DAILY SC 10/23/24 10:00 10/23/24 08:50 40 MG Acetaminophen/ Hydrocodone Bitart 1 tab Q6HP PRN PO 10/22/24 11:00 10/23/24 15:13 1 TAB Gabapentin 300 mg BID PO 10/22/24 22:00 10/23/24 10:40 300 MG Laboratory Results Laboratory Tests 10/22/24 04:29 Urinalysis Test 10/21/24 10:00 Urine Color Yellow (Yellow) Urine Clarity Clear (Clear) Urine pH 5.5 (5.0-9.0) Urine Specific [place] 1.024 (1.001-1.035) Urine Protein Negative (Negative) Urine Ketones Trace (Negative) Urine Blood Negative /uL (Negative) Urine Nitrite Negative (Negative) Urine Bilirubin Negative (Negative) Urine Urobilinogen Normal mg/dL (Negative) Urine Leukocyte Esterase 2+ /uL (Negative) Urine RBC 2 /hpf (0 - 4) Urine Microscopic WBC 1 /HPF (0-5) Urine Squamous Epithelial Cells Few /hpf (<5) Urine Calcium Oxalate Crystals Few (None Seen) Urine Bacteria None seen /hpf (None Seen) Urine Hyaline Casts Few /lpf (0 - 2) Urine Mucus Few (None Seen) Urine Yeast (Budding) Occasional /hpf (None Urine Glucose Normal mg/dL (Normal) Microbiology Microbiology Date/Time Source Procedure Growth Status 10/21/24 22:10 Vulva Gram Stain - Final Complete 10/21/24 22:10 Wound Culture - Final Escherichia coli Complete 10/21/24 09:00 Blood Blood Culture - Preliminary NO GROWTH AFTER 48 HOURS OF INCUBATION. Resulted Assessment/Plan Assessment/Plan # Vulvular Cancer - Pain Control - Refusing treatment # Intractable pain likely due to chronic lumbar stenosis # Splenic Artery Aneurysm 15mm - Outpatient followup # Acute Cystitis - Rocephin # Goals of care discussion >18 mins FULL CODE Plan discussed with: Patient My Orders Orders - PRIETO PANIAGUA MD Procedure Category Date Status Time Cleanse Wound With PEEWEE 10/22/24 In Process Wound Clean 10:30 * Dietary Consult CONS 10/22/24 Transmitted 17:13 Date of Service: Oct 23, 2024 Billing Provider: PRIETO PANIAGUA MD Common Visit Codes: [id number] INP/OBS CARE(MOD) PRIETO PANIAGUA MD Oct 23, 2024 16:58
[2024-10-24] VITALS (7 sets, daily range): BP systolic 129–157; BP diastolic 54–75; PULSE 50–68; RESP 16–18; TEMP 97.2–98.2; O2SAT 93–96
--- NOTE | 2024-10-24 13:20 | DVHPN2 ---
Subjective Seen and examined at bedside, discussed case with vascular surgery, no surgical indication at this time. Pain likely due to chronic lumbar stenosis. Await MRI L spine Changes from previous H/P or p: No Changes Eyes: No Pain, No Vision change, No Conjunctivae inflammation, No Eyelid inflammation, No Other, No Redness ENT: No Ear pain, No Ear discharge, No Nose pain, No Nose discharge, No Nose congestion, No Mouth pain, No Mouth swelling, No Throat pain, No Throat swelling, No Other Cardiovascular: No Chest Pain, No Palpitations, No Orthopnea, No Paroxysmal Noc. Dyspnea, No Edema, No Lt Headedness, No Other Respiratory: No Cough, No Dry, No Shortness of breath, No SOB with excertion, No Wheezing, No Hemoptysis, No Pleuritic Pain, No Sputum, No Other Gastrointestinal: No Nausea, No Vomiting, No Diarrhea, No Constipation, No Melena, No Hematochezia, No Other Genitourinary: No Frequency, No Incontinence, No Hematuria, No Retention, No Other Musculoskeletal: No other, No neck pain, No shoulder pain, No arm pain; back pain; No hand pain, No leg pain, No foot pain Skin: No Rash, No Lesions, No Jaundice, No Bruising, No Other Objective Vitals Vital Signs Date Time Temp Pulse Resp B/P (MAP) Pulse Ox O2 Delivery O2 Flow Rate FiO2 10/24/24 12:59 97.2 50 17 157/73 (101) 96 97.2 10/23/24 20:00 Room Air* 0 21 Intake/Output Intake and Output 10/24/24 07:00 Intake Total 1992 ml Output Total 1475 ml Balance 517 ml Intake Oral 1992 ml Output Urine Total 1475 ml General Appearance: Alert, Oriented X3, Cooperative Lungs: Clear to auscultation Cardiovascular: Regular rate, Normal S1, Normal S2 Abdomen: Normal bowel sounds, Soft Extremities: Other (lumbar stenosis) Skin: Other (see nursing notes) Psych/Mental Status: Mental status NL Medications Current Medications Medications Dose Ordered Sig/Nic Route Start Time Stop Time Status Last Admin Dose Admin Acetaminophen/ Hydrocodone Bitart 1 tab Q4HP PRN PO 10/21/24 15:00 10/22/24 06:18 1 TAB Ondansetron HCl 4 mg Q4HP PRN IV 10/21/24 15:00 Docusate Sodium 100 mg BIDPRN PRN PO 10/21/24 15:00 10/24/24 10:56 100 MG Acetaminophen 650 mg Q6HP PRN PO 10/21/24 15:00 Ceftriaxone Sodium 50 ml @ 100 mls/hr DAILY@09 IV 10/22/24 09:00 10/24/24 10:57 100 MLS/HR Enoxaparin Sodium 40 mg DAILY SC 10/23/24 10:00 10/24/24 10:56 40 MG Acetaminophen/ Hydrocodone Bitart 1 tab Q6HP PRN PO 10/22/24 11:00 10/24/24 10:59 1 TAB Gabapentin 300 mg BID PO 10/22/24 22:00 10/24/24 10:56 300 MG Laboratory Results Laboratory Tests 10/22/24 04:29 Urinalysis Test 10/21/24 10:00 Urine Color Yellow (Yellow) Urine Clarity Clear (Clear) Urine pH 5.5 (5.0-9.0) Urine Specific [place] 1.024 (1.001-1.035) Urine Protein Negative (Negative) Urine Ketones Trace (Negative) Urine Blood Negative /uL (Negative) Urine Nitrite Negative (Negative) Urine Bilirubin Negative (Negative) Urine Urobilinogen Normal mg/dL (Negative) Urine Leukocyte Esterase 2+ /uL (Negative) Urine RBC 2 /hpf (0 - 4) Urine Microscopic WBC 1 /HPF (0-5) Urine Squamous Epithelial Cells Few /hpf (<5) Urine Calcium Oxalate Crystals Few (None Seen) Urine Bacteria None seen /hpf (None Seen) Urine Hyaline Casts Few /lpf (0 - 2) Urine Mucus Few (None Seen) Urine Yeast (Budding) Occasional /hpf (None Urine Glucose Normal mg/dL (Normal) Microbiology Microbiology Date/Time Source Procedure Growth Status 10/21/24 22:10 Vulva Gram Stain - Final Complete 10/21/24 22:10 Wound Culture - Final Escherichia coli Complete 10/21/24 09:00 Blood Blood Culture - Preliminary NO GROWTH AFTER 72 HOURS OF INCUBATION. Resulted Assessment/Plan Assessment/Plan # Vulvular Cancer - Pain Control - Refusing treatment # Intractable pain likely due to chronic lumbar stenosis- MRI # Splenic Artery Aneurysm 15mm - Outpatient followup # Acute Cystitis - Rocephin # Goals of care discussion >18 mins FULL CODE Plan discussed with: Patient My Orders Orders - PRIETO PANIAGUA MD Procedure Category Date Status Time Lumbar Spine Wo MRI 10/24/24 Logged Contrast 11:03 Baclofen Tablet PHA 10/24/24 Verified (Liorisal Tablet) 13:30 Consultdr. Dilip CONS 10/24/24 Verified [place](Spine) 13:17 Date of Service: Oct 24, 2024 Billing Provider: PRIETO PANIAGUA MD Common Visit Codes: [id number] INP/OBS CARE(MOD) PRIETO PANIAGUA MD Oct 24, 2024 13:20
--- NOTE | 2024-10-24 17:49 | DVH ---
PROCEDURE: MRI LUMBAR SPINE WO CONTRAST Indication: BACK PAIN COMPARISON: None TECHNIQUE: Multiplanar multisequence images of the the lumbar spine are obtained. FINDINGS: For the purpose of this examination, there are 5 lumbar vertebral body types counting from the lumbos acral junction. The lumbar vertebral body heights are maintained. There is moderate to severe multilevel disc space narrowing and desiccation. This is most pronounced at L4-5 and L5-S1. There is 4 mm anterolisthesis of L4 upon L5. There is 5 mm anterolisthesis of L5 on S1. Moderate to severe facet hypertrophic morfin ges most pronounced at L4-5 and L5-S1. Conus terminates at the level of the L1-2 disc space level. Extensive marrow edematous changes at L4, L5 and S1 likely secondary to degenerative disease. L1-2: 3 mm disc protrusion. Mild facet and flavum hypertrophy. No spinal canal stenosis. Severe rig ht and moderate to severe left neural foraminal stenosis. L2-3: 3 mm disc protrusion. Mild facet and flavum hypertrophy. No spinal canal stenosis. Severe left and moderate to severe right neural foraminal stenosis. L3-4: 4 mm disc protrusion. Moderate facet and flavum hypertrophy. Thecal sac measures 8 mm AP. Mi [id number] spinal canal stenosis. Severe bilateral neural foraminal stenosis. L4-5: 5 mm disc protrusion. Thecal sac measures 3 mm AP. Severe spinal canal stenosis. Severe bilat eral neural foraminal stenosis, [id number]. L5-S1: 5 mm disc protrusion. Severe facet and flavum hypertrophy. Thecal sac measures 6 mm AP. Mode rate to severe spinal canal stenosis. Severe bilateral neural foraminal stenosis. IMPRESSION: Moderate to severe lumbar degenerative disc disease. 4 mm anterolisthesis of L4 upon L5. 5 mm anterolisthesis L5 on S1. Severe spinal canal stenosis L4-5. Moderate to severe spinal canal stenosis L5-S1. Multilevel moderate to severe neural foraminal stenosis most pronounced at L3-4, L4-5 and L5-S1
[2024-10-24] MEDS: BACLOFEN 10 MG TAB PO PRN (21:31)
[2024-10-25] VITALS (7 sets, daily range): BP systolic 131–174; BP diastolic 64–94; PULSE 50–62; RESP 17–19; TEMP 97.5–98.7; O2SAT 93–98
--- NOTE | 2024-10-25 11:04 | DVHINCON2 ---
Consultation - Spinal Surgery Date Seen: Oct 25, 2024 Referring Physician Referring Physician Attending Doctor: Emile Mcmahan MD Reason for Consultation Reason for Visit: Abdominal pain, back pain History of Present Illness History of Present Illness History of Present Illness Catrina Burgess is a 69-year-old female with past medical history of vulvar cancer, who came to the hospital for abdominal and back pain. Patient states she gets intermittent abdominal pain, and that she just started having back pain a couple days ago and it is worsening. She states the pain is shooting down the back of her legs. She also complains of pain with urination. She states that with the cancer she will have sores that open from time to time and when they do it makes it painful to urinate and ambulate because her legs rub the wounds. CT of abdomen shows a 15mm splenic aneurysm, spoke with interventional radiologist, Dr. Ramirez, he stated it looks stable and should just be monitored. Recommend for a follow up CT in 6 months. Past Medical/Surgical History Past Medical/Surgical History Heme/Onc: Cancer (vulvar) Past Surgical History: None Family and Social History Family and Social History Smoke: <1 pack per day ALCOHOL: rare Drugs: None Lives: with Family Domestic Violence: Neg Allergies and medications Allergies: Coded Allergies: NO KNOWN ALLERGIES (Unverified , 04/11/24) Home Meds Active Scripts Hydrocodone-Acetaminophen (Hydrocodone Bitartrate/AC 5-325 mg) 1 Tab Tab, 1 TAB PO BID, #10 TAB Prov:MARIAELENA SIEGEL 04/11/24 Albuterol Sulfate (Albuterol Sulfate Hfa) 108 Mcg/Act Aer, 108 MCG IN TID, #120 AER Prov:MARIAELENA SIEGEL 04/11/24 Review of systems Review of Systems: HEENT:Normal, CVS:Normal, RESPIRATORY:Normal, GI:Normal, :Normal, MSK:Abnormal (Patient complaining of severe leg cramps to her right leg by calf), NEURO:Abnormal (Patient states he is able to walk utilizing a cane she has had this pain to her low back as long as she can remember) Examination Vital signs Images PROCEDURE: MRI LUMBAR SPINE WO CONTRAST Indication: BACK PAIN COMPARISON: None TECHNIQUE: Multiplanar multisequence images of the the lumbar spine are obtained. FINDINGS: For the purpose of this examination, there are 5 lumbar vertebral body types counting from the lumbosacral junction. The lumbar vertebral body heights are maintained. There is moderate to severe multilevel disc space narrowing and desiccation. This is most pronounced at L4-5 and L5-S1. There is 4 mm anterolisthesis of L4 upon L5. There is 5 mm anterolisthesis of L5 on S1. Moderate to severe facet hypertrophic changes most pronounced at L4-5 and L5-S1. Conus terminates at the level of the L1-2 disc space level. Extensive marrow edematous changes at L4, L5 and S1 likely secondary to degenerative disease. L1-2: 3 mm disc protrusion. Mild facet and flavum hypertrophy. No spinal canal stenosis. Severe right and moderate to severe left neural foraminal stenosis. L2-3: 3 mm disc protrusion. Mild facet and flavum hypertrophy. No spinal canal stenosis. Severe left and moderate to severe right neural foraminal stenosis. L3-4: 4 mm disc protrusion. Moderate facet and flavum hypertrophy. Thecal sac measures 8 mm AP. Uhmt-ot-tixguifp spinal canal stenosis. Severe bilateral neural foraminal stenosis. L4-5: 5 mm disc protrusion. Thecal sac measures 3 mm AP. Severe spinal canal stenosis. Severe bilateral neural foraminal stenosis, [id number]-[id number]-fpfl-left. L5-S1: 5 mm disc protrusion. Severe facet and flavum hypertrophy. Thecal sac measures 6 mm AP. Moderate to severe spinal canal stenosis. Severe bilateral neural foraminal stenosis. IMPRESSION: Moderate to severe lumbar degenerative disc disease. 4 mm anterolisthesis of L4 upon L5. 5 mm anterolisthesis L5 on S1. Severe spinal canal stenosis L4-5. Moderate to severe spinal canal stenosis L5- S1. Multilevel moderate to severe neural foraminal stenosis most pronounced at L3-4, L4-5 and L5-S1 Vital Signs Date Time Temp Pulse Resp B/P (MAP) Pulse Ox O2 Delivery O2 Flow Rate FiO2 10/25/24 09:00 97.5 50 19 134/67 (89) 93 97.5 10/24/24 20:00 Room Air* 0 21 Medications Current Medications Medications (Trade) Dose Ordered Sig/Nic Route PRN Reason Start Time Stop Time Status Last Admin Baclofen (Liorisal Tablet) 10 mg Q8HP PRN PO FOR MUSCLE SPASM 10/24/24 13:30 10/24/24 21:31 Laboratory Labs Test 10/22/24 04:29 10/21/24 10:00 10/21/24 09:00 Range/Units White Blood Count 5.5 4.4-10.8 10^3/uL Red Blood Count 4.27 4.0-5.20 10^6/uL Hemoglobin 12.7 12.2-16.2 g/dL Hematocrit 37.8 # 36.0-46.0 % Mean Corpuscular Volume 88.4 80.0-100.0 fL Mean Corpuscular Hemoglobin 29.7 28.0-32.0 pg Mean Corpuscular Hemoglobin Concent 33.6 32.0-36.0 g/dL Red Cell Distribution Width 15.3 H 11.8-14.3 % Platelet Count 273 140-450 10^3/uL Mean Platelet Volume 7.8 6.9-10.8 fL Neutrophils (%) (Auto) 52.2 37.0-80.0 % Lymphocytes (%) (Auto) 36.5 10.0-50.0 % Monocytes (%) (Auto) 6.9 0.0-12.0 % Eosinophils (%) (Auto) 3.8 0.0-7.0 % Basophils (%) (Auto) 0.6 0.0-2.0 % Neutrophils # (Auto) 2.9 1.6-8.6 10 ^3/uL Lymphocytes # (Auto) 2.0 0.4-5.4 10 ^3/uL Monocytes # (Auto) 0.4 0-1.3 10 ^3/uL Eosinophils # (Auto) 0.2 0-0.8 10 ^3/uL Basophils # (Auto) 0 0-0.2 10 ^3/uL Nucleated Red Blood Cells 0.1 % Sodium Level 145 136-145 mmol/L Potassium Level 3.7 3.5-5.1 mmol/L Chloride Level 107 98-107 mmol/L Carbon Dioxide Level 29 20-31 mmol/L Anion Gap 9 5-15 Blood Urea Nitrogen 20 9-23 mg/dL Creatinine 0.62 0.550-1.02 mg/dL Glomerular Filtration Rate Calc 96 >90 mL/min BUN/Creatinine Ratio 32.3 H 10.0-20.0 Serum Glucose 84 74-106 mg/dL Calcium Level 9.8 8.7-10.4 mg/dL Total Bilirubin 0.3 0.2-1.0 mg/dL Aspartate Amino Transferase (AST) 10 <34 U/L Alanine Aminotransferase (ALT) < 9 7-40 U/L Alkaline Phosphatase 87 46-116 U/L Total Protein 5.7 5.7-8.2 g/dL Albumin 3.7 3.2-4.8 g/dL Urine Color Yellow Yellow Urine Clarity Clear Clear Urine pH 5.5 5.0-9.0 Urine Specific [place] 1.024 1.001-1.035 Urine Protein Negative Negative Urine Ketones Trace Negative Urine Blood Negative Negative /uL Urine Nitrite Negative Negative Urine Bilirubin Negative Negative Urine Urobilinogen Normal Negative mg/dL Urine Leukocyte Esterase 2+ Negative /uL Urine RBC 2 0 - 4 /hpf Urine Microscopic WBC 1 0-5 /HPF Urine Squamous Epithelial Cells Few <5 /hpf Urine Calcium Oxalate Crystals Few None Seen Urine Bacteria None seen None Seen /hpf Urine Hyaline Casts Few 0 - 2 /lpf Urine Mucus Few None Seen Urine Yeast (Budding) Occasional None Seen /hpf Urine Glucose Normal Normal mg/dL Lactic Acid Level 1.3 0.4-2.0 mmol/L Microbiology Date/Time Source Procedure Growth Status 10/21/24 22:10 Vulva Gram Stain - Final Complete 10/21/24 22:10 Wound Culture - Final Escherichia coli Complete 10/21/24 09:00 Blood Blood Culture - Preliminary NO GROWTH AFTER 72 HOURS OF INCUBATION. Resulted Examination: GENERAL:Abnormal (Patient looks very unkempt, ill), HEENT:Normal, NECK:Normal, LUNGS:Normal, CVS:Normal (No complaints of any chest pain), ABDOMEN:Normal, MSK:Normal (Patient has a utilize a cane to ambulate, patient states that her right leg is weak and makes it difficult for her to ambulate she also reports having excessive muscle cramps to that leg), SKIN:Normal, NEURO:Normal (Sensation intact bilaterally), :Normal Problem List/Assessment/Plan Problems: (1) Lumbar stenosis with neurogenic claudication (2) Muscle spasm of right leg Assessment and Plan Moderate to severe lumbar degenerative disc disease. 4 mm anterolisthesis of L4 upon L5. 5 mm anterolisthesis L5 on S1. Severe spinal canal stenosis L4-5. Moderate to severe spinal canal stenosis L5- S1. Multilevel moderate to severe neural foraminal stenosis most pronounced at L3-4, L4-5 and L5-S1 Patient also has a new finding of active E coli infection, a splenic artery aneurysm, do these findings the patient is not a surgical candidate at this time. Patient needs to be medically cleared and cardiovascular cleared prior to any consideration for spine surgery. She will have to follow up with her PCP and get a spine surgery referral once she has been medically optimized Continue supportive management per admitting team's discretion Recommend physical therapy evaluation, treatment plans and discharge recommendations No barriers to discharge from a spine surgery perspective Call with questions Shivani Yang [facility] Orthopaedic Spine Surgery nurse practitioner For Dr Kobi Marshall Patient was examined, chart reviewed, labs evaluated, and diagnostic studies and findings analyzed. Case was discussed with Dr. Dilip Marshall who formulated the plan of care. This medical document was created using an electronic medical record system with [email or web address] dictation system. Although this document has been carefully reviewed, there might still be some phonetic and typographical errors. These areas are purely typographical due to imperfections of the software programs, and do not reflect any compromise in the patient's medical care. Plan discussed with Plan discussed with: Patient, Other (Christina extension [phone]) BASILIO YANG NP Oct 25, 2024 11:04
--- NOTE | 2024-10-25 14:05 | DVHPN2 ---
Reviewed: Care Plan, H&P, Labs, Medications, Previous Orders, Radiology Changes from previous H/P or p: No Changes Eyes: No Pain, No Vision change, No Conjunctivae inflammation, No Eyelid inflammation, No Other, No Redness ENT: No Ear pain, No Ear discharge, No Nose pain, No Nose discharge, No Nose congestion, No Mouth pain, No Mouth swelling, No Throat pain, No Throat swelling, No Other Cardiovascular: No Chest Pain, No Palpitations, No Orthopnea, No Paroxysmal Noc. Dyspnea, No Edema, No Lt Headedness, No Other Respiratory: No Cough, No Dry, No Shortness of breath, No SOB with excertion, No Wheezing, No Hemoptysis, No Pleuritic Pain, No Sputum, No Other Gastrointestinal: No Nausea, No Vomiting, No Diarrhea, No Constipation, No Melena, No Hematochezia, No Other Genitourinary: No Frequency, No Incontinence, No Hematuria, No Retention, No Other Musculoskeletal: No other, No neck pain, No shoulder pain, No arm pain; back pain; No hand pain, No leg pain, No foot pain Skin: No Rash, No Lesions, No Jaundice, No Bruising, No Other Objective Vitals Vital Signs Date Time Temp Pulse Resp B/P (MAP) Pulse Ox O2 Delivery O2 Flow Rate FiO2 10/25/24 13:00 97.6 50 18 174/87 (116) 98 97.6 10/24/24 20:00 Room Air* 0 21 Intake/Output Intake and Output 10/25/24 07:00 Intake Total 2240 ml Balance 2240 ml Intake Oral 2240 ml # Voids 14 General Appearance: Alert, Oriented X3, Cooperative Lungs: Clear to auscultation Cardiovascular: Regular rate, Normal S1, Normal S2 Abdomen: Normal bowel sounds, Soft Extremities: Other (lumbar stenosis) Skin: Other (see nursing notes) Psych/Mental Status: Mental status NL Medications Current Medications Medications Dose Ordered Sig/Nic Route Start Time Stop Time Status Last Admin Dose Admin Acetaminophen/ Hydrocodone Bitart 1 tab Q4HP PRN PO 10/21/24 15:00 10/22/24 06:18 1 TAB Ondansetron HCl 4 mg Q4HP PRN IV 10/21/24 15:00 Docusate Sodium 100 mg BIDPRN PRN PO 10/21/24 15:00 10/25/24 08:57 100 MG Acetaminophen 650 mg Q6HP PRN PO 10/21/24 15:00 Ceftriaxone Sodium 50 ml @ 100 mls/hr DAILY@09 IV 10/22/24 09:00 10/25/24 08:56 100 MLS/HR Enoxaparin Sodium 40 mg DAILY SC 10/23/24 10:00 10/25/24 08:57 40 MG Acetaminophen/ Hydrocodone Bitart 1 tab Q6HP PRN PO 10/22/24 11:00 10/25/24 08:14 1 TAB Gabapentin 300 mg BID PO 10/22/24 22:00 10/25/24 08:57 300 MG Baclofen 10 mg Q8HP PRN PO 10/24/24 13:30 10/24/24 21:31 10 MG Laboratory Results Laboratory Tests 10/22/24 04:29 Urinalysis Test 10/21/24 10:00 Urine Color Yellow (Yellow) Urine Clarity Clear (Clear) Urine pH 5.5 (5.0-9.0) Urine Specific [place] 1.024 (1.001-1.035) Urine Protein Negative (Negative) Urine Ketones Trace (Negative) Urine Blood Negative /uL (Negative) Urine Nitrite Negative (Negative) Urine Bilirubin Negative (Negative) Urine Urobilinogen Normal mg/dL (Negative) Urine Leukocyte Esterase 2+ /uL (Negative) Urine RBC 2 /hpf (0 - 4) Urine Microscopic WBC 1 /HPF (0-5) Urine Squamous Epithelial Cells Few /hpf (<5) Urine Calcium Oxalate Crystals Few (None Seen) Urine Bacteria None seen /hpf (None Seen) Urine Hyaline Casts Few /lpf (0 - 2) Urine Mucus Few (None Seen) Urine Yeast (Budding) Occasional /hpf (None Urine Glucose Normal mg/dL (Normal) Microbiology Microbiology Date/Time Source Procedure Growth Status 10/21/24 22:10 Vulva Gram Stain - Final Complete 10/21/24 22:10 Wound Culture - Final Escherichia coli Complete 10/21/24 09:00 Blood Blood Culture - Preliminary NO GROWTH AFTER 72 HOURS OF INCUBATION. Resulted Labs and/or images reviewed: Labs reviewed by me, Image(s) reviewed by me Assessment/Plan Assessment/Plan Covering for Dr. Vicente # Vulvular Cancer - Pain Control - Refusing treatment # Intractable pain likely due to chronic lumbar stenosis-MRI lumbar spine shows severe DJD changes at several levels, spine surgery consult appreciated # Splenic Artery Aneurysm 15mm - Outpatient followup # Acute Cystitis: Urine cultures growing E coli, -continue Rocephin Plan discussed with: Patient Date of Service: Oct 25, 2024 Billing Provider: ANABELA DANIELLE MD Common Visit Codes: [id number] INP/OBS CARE(HIGH) ANABELA DANIELLE MD Oct 25, 2024 14:05
--- NOTE | 2024-10-25 16:02 | DVH ---
History: ABDOMINAL PAIN; LEFT FLANK PAIN Comparison Study: None TECHNIQUE: Multidetector CT of the chest, abdomen and pelvis was performed from lower neck to pubic s ymphysis without the use of intravenous contrast. Axial, coronal and sagittal multiplanar reformats w ere performed by the technologist on a separate workstation. Radiation Dose Information: CT Dose: CTDI volume is 7.97 mGy. Dose-length product is 501.38 mGy*cm FINDINGS: Lower neck: Normal thyroid. Lungs: No focal consolidation, suspicious pulmonary nodules or pulmonary masses. Heart/Vascular Structures: Normal heart size. Lymph Nodes: No adenopathy. Pleura: No pleural effusion or significant pneumothorax. Liver: The liver is normal in size. Non-contrast appearance of liver. Gallbladder and Biliary Tree: Calcified gallstones Spleen: Unremarkable. Pancreas: Unremarkable. Adrenal Glands: Unremarkable. Kidneys: No renal calculi or hydronephrosis. Bladder: Unremarkable. Bowel: No bowel wall thickening or dilatation. The appendix is not visualized; however, no secondary findings of acute appendicitis identified. Peritoneum: No ascites or pneumoperitoneum. Lymphadenopathy: No enlarged lymph nodes. Vasculature: The visualized abdominal aorta is normal in size and caliber. Evaluation of the vascular structures is limited due to lack of intravenous contrast. Pelvic Organs: Unremarkable. Musculoskeletal: No acute osseous abnormality. Soft tissues: Unremarkable. IMPRESSION: 1. No nephrolithiasis or hydronephrosis bilaterally. 2. 12-13 mm calcified splenic artery aneurysm 3. Calcified gallstone. 4. Stool-filled rectosigmoid colon. All CT scans at this medical facility are performed using dose modulation techniques as appropriate t o a performed exam including the following: Automated exposure control was utilized; adjustment of th e MA and/or KV according to patient size; and use of iterative reconstruction technique. HS:Y
[2024-10-25] MEDS: CYCLOBENZAPRINE HCL 10 MG TAB PO SCH (21:25)
[2024-10-26] VITALS (7 sets, daily range): BP systolic 114–147; BP diastolic 59–77; PULSE 51–89; RESP 15–19; TEMP 97.6–98.1; O2SAT 92–97
--- NOTE | 2024-10-26 09:25 | DVHPN2 ---
Reviewed: Care Plan, H&P, Labs, Medications, Previous Orders, Radiology Changes from previous H/P or p: No Changes Eyes: No Pain, No Vision change, No Conjunctivae inflammation, No Eyelid inflammation, No Other, No Redness ENT: No Ear pain, No Ear discharge, No Nose pain, No Nose discharge, No Nose congestion, No Mouth pain, No Mouth swelling, No Throat pain, No Throat swelling, No Other Cardiovascular: No Chest Pain, No Palpitations, No Orthopnea, No Paroxysmal Noc. Dyspnea, No Edema, No Lt Headedness, No Other Respiratory: No Cough, No Dry, No Shortness of breath, No SOB with excertion, No Wheezing, No Hemoptysis, No Pleuritic Pain, No Sputum, No Other Gastrointestinal: No Nausea, No Vomiting, No Diarrhea, No Constipation, No Melena, No Hematochezia, No Other Genitourinary: No Frequency, No Incontinence, No Hematuria, No Retention, No Other Musculoskeletal: No other, No neck pain, No shoulder pain, No arm pain; back pain; No hand pain, No leg pain, No foot pain Skin: No Rash, No Lesions, No Jaundice, No Bruising, No Other Objective Vitals Vital Signs Date Time Temp Pulse Resp B/P (MAP) Pulse Ox O2 Delivery O2 Flow Rate FiO2 10/26/24 05:06 98.1 58 17 126/67 (86) 94 98.1 10/25/24 20:00 Room Air* 0 21 Intake/Output Intake and Output 10/26/24 07:00 Intake Total 1050 ml Output Total 900 ml Balance 150 ml Intake Oral 1000 ml IV Total 50 ml Output Urine Total 900 ml # Voids 5 General Appearance: Alert, Oriented X3, Cooperative Lungs: Clear to auscultation Cardiovascular: Regular rate, Normal S1, Normal S2 Abdomen: Normal bowel sounds, Soft Extremities: Other (lumbar stenosis) Skin: Other (see nursing notes) Psych/Mental Status: Mental status NL Medications Current Medications Medications Dose Ordered Sig/Nic Route Start Time Stop Time Status Last Admin Dose Admin Acetaminophen/ Hydrocodone Bitart 1 tab Q4HP PRN PO 10/21/24 15:00 10/22/24 06:18 1 TAB Ondansetron HCl 4 mg Q4HP PRN IV 10/21/24 15:00 Docusate Sodium 100 mg BIDPRN PRN PO 10/21/24 15:00 10/25/24 08:57 100 MG Acetaminophen 650 mg Q6HP PRN PO 10/21/24 15:00 Ceftriaxone Sodium 50 ml @ 100 mls/hr DAILY@09 IV 10/22/24 09:00 10/25/24 08:56 100 MLS/HR Enoxaparin Sodium 40 mg DAILY SC 10/23/24 10:00 10/25/24 08:57 40 MG Acetaminophen/ Hydrocodone Bitart 1 tab Q6HP PRN PO 10/22/24 11:00 10/26/24 06:05 1 TAB Gabapentin 300 mg BID PO 10/22/24 22:00 10/25/24 21:26 300 MG Cyclobenzaprine HCl 10 mg TID PO 10/25/24 22:00 10/26/24 06:01 10 MG Laboratory Results Laboratory Tests 10/22/24 04:29 Urinalysis Test 10/21/24 10:00 Urine Color Yellow (Yellow) Urine Clarity Clear (Clear) Urine pH 5.5 (5.0-9.0) Urine Specific [place] 1.024 (1.001-1.035) Urine Protein Negative (Negative) Urine Ketones Trace (Negative) Urine Blood Negative /uL (Negative) Urine Nitrite Negative (Negative) Urine Bilirubin Negative (Negative) Urine Urobilinogen Normal mg/dL (Negative) Urine Leukocyte Esterase 2+ /uL (Negative) Urine RBC 2 /hpf (0 - 4) Urine Microscopic WBC 1 /HPF (0-5) Urine Squamous Epithelial Cells Few /hpf (<5) Urine Calcium Oxalate Crystals Few (None Seen) Urine Bacteria None seen /hpf (None Seen) Urine Hyaline Casts Few /lpf (0 - 2) Urine Mucus Few (None Seen) Urine Yeast (Budding) Occasional /hpf (None Urine Glucose Normal mg/dL (Normal) Microbiology Microbiology Date/Time Source Procedure Growth Status 10/21/24 22:10 Vulva Gram Stain - Final Complete 10/21/24 22:10 Wound Culture - Final Escherichia coli Complete 10/21/24 09:00 Blood Blood Culture - Final NO GROWTH AFTER 5 DAYS OF INCUBATION. Complete Labs and/or images reviewed: Labs reviewed by me, Image(s) reviewed by me Assessment/Plan Assessment/Plan Covering for Dr. Vicente # Vulvular Cancer - Pain Control - Refusing treatment # Intractable pain likely due to chronic lumbar stenosis-MRI lumbar spine shows severe DJD changes at several levels, spine surgery consult appreciated advised conservative management # Splenic Artery Aneurysm 15mm calcified - Outpatient followup # Acute Cystitis: Urine cultures growing E coli, -continue Rocephin # Vulvar wound infection with E coli: Continue Rocephin Daughter Catrina [phone] at the bedside; okay with her to discharge the patient home tomorrow Plan discussed with: Patient My Orders Orders - ANABELA DANIELLE MD Procedure Category Date Status Time Chst Ab Pel Wo Con-No CT 10/25/24 Resulted Iv/Oral 14:33 Date of Service: Oct 26, 2024 Billing Provider: ANABELA DANIELLE MD Common Visit Codes: [id number] INP/OBS CARE(HIGH) ANABELA DANIELLE MD Oct 26, 2024 09:25
[2024-10-27 01:00] VITALS: BP 129/80; PULSE 54; RESP 18; TEMP 98.6; O2SAT 94
[2024-10-27 05:00] VITALS: BP 128/71; PULSE 60; RESP 18; TEMP 98.6; O2SAT 94
[2024-10-27 08:00] VITALS: PULSE 60; RESP 17; O2SAT 93
[2024-10-27 08:30] VITALS: BP 120/79; PULSE 60; RESP 17; TEMP 97; O2SAT 93
[2024-10-27] MEDS ORDERED: CIPR-173 PO (10:37)
[2024-10-27] MEDS ORDERED: HYDR1TAB97 PO (10:37)
--- NOTE | 2024-10-27 10:40 | DVHPN2 ---
Reviewed: Care Plan, H&P, Labs, Medications, Previous Orders, Radiology Changes from previous H/P or p: No Changes Eyes: No Pain, No Vision change, No Conjunctivae inflammation, No Eyelid inflammation, No Other, No Redness ENT: No Ear pain, No Ear discharge, No Nose pain, No Nose discharge, No Nose congestion, No Mouth pain, No Mouth swelling, No Throat pain, No Throat swelling, No Other Cardiovascular: No Chest Pain, No Palpitations, No Orthopnea, No Paroxysmal Noc. Dyspnea, No Edema, No Lt Headedness, No Other Respiratory: No Cough, No Dry, No Shortness of breath, No SOB with excertion, No Wheezing, No Hemoptysis, No Pleuritic Pain, No Sputum, No Other Gastrointestinal: No Nausea, No Vomiting, No Diarrhea, No Constipation, No Melena, No Hematochezia, No Other Genitourinary: No Frequency, No Incontinence, No Hematuria, No Retention, No Other Musculoskeletal: No other, No neck pain, No shoulder pain, No arm pain; back pain; No hand pain, No leg pain, No foot pain Skin: No Rash, No Lesions, No Jaundice, No Bruising, No Other Objective Vitals Vital Signs Date Time Temp Pulse Resp B/P (MAP) Pulse Ox O2 Delivery O2 Flow Rate FiO2 10/27/24 08:30 97.0 60 17 120/79 (93) 93 97.0 10/27/24 08:00 Room Air* 0 21 Intake/Output Intake and Output 10/27/24 07:00 Intake Total 850 ml Balance 850 ml Intake Oral 850 ml # Voids 8 General Appearance: Alert, Oriented X3, Cooperative Lungs: Clear to auscultation Cardiovascular: Regular rate, Normal S1, Normal S2 Abdomen: Normal bowel sounds, Soft Extremities: Other (lumbar stenosis) Skin: Other (see nursing notes) Psych/Mental Status: Mental status NL Medications Current Medications Medications Dose Ordered Sig/Nic Route Start Time Stop Time Status Last Admin Dose Admin Acetaminophen/ Hydrocodone Bitart 1 tab Q4HP PRN PO 10/21/24 15:00 10/22/24 06:18 1 TAB Ondansetron HCl 4 mg Q4HP PRN IV 10/21/24 15:00 Docusate Sodium 100 mg BIDPRN PRN PO 10/21/24 15:00 10/25/24 08:57 100 MG Acetaminophen 650 mg Q6HP PRN PO 10/21/24 15:00 Ceftriaxone Sodium 50 ml @ 100 mls/hr DAILY@09 IV 10/22/24 09:00 10/27/24 09:00 100 MLS/HR Enoxaparin Sodium 40 mg DAILY SC 10/23/24 10:00 10/27/24 09:41 40 MG Acetaminophen/ Hydrocodone Bitart 1 tab Q6HP PRN PO 10/22/24 11:00 10/27/24 05:02 1 TAB Gabapentin 300 mg BID PO 10/22/24 22:00 10/27/24 09:41 300 MG Cyclobenzaprine HCl 10 mg TID PO 10/25/24 22:00 10/27/24 05:01 10 MG Laboratory Results Laboratory Tests 10/22/24 04:29 Urinalysis Test 10/21/24 10:00 Urine Color Yellow (Yellow) Urine Clarity Clear (Clear) Urine pH 5.5 (5.0-9.0) Urine Specific [place] 1.024 (1.001-1.035) Urine Protein Negative (Negative) Urine Ketones Trace (Negative) Urine Blood Negative /uL (Negative) Urine Nitrite Negative (Negative) Urine Bilirubin Negative (Negative) Urine Urobilinogen Normal mg/dL (Negative) Urine Leukocyte Esterase 2+ /uL (Negative) Urine RBC 2 /hpf (0 - 4) Urine Microscopic WBC 1 /HPF (0-5) Urine Squamous Epithelial Cells Few /hpf (<5) Urine Calcium Oxalate Crystals Few (None Seen) Urine Bacteria None seen /hpf (None Seen) Urine Hyaline Casts Few /lpf (0 - 2) Urine Mucus Few (None Seen) Urine Yeast (Budding) Occasional /hpf (None Urine Glucose Normal mg/dL (Normal) Microbiology Microbiology Date/Time Source Procedure Growth Status 10/21/24 22:10 Vulva Gram Stain - Final Complete 10/21/24 22:10 Wound Culture - Final Escherichia coli Complete 10/21/24 09:00 Blood Blood Culture - Final NO GROWTH AFTER 5 DAYS OF INCUBATION. Complete Labs and/or images reviewed: Labs reviewed by me, Image(s) reviewed by me Assessment/Plan Assessment/Plan Covering for Dr. 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
--- NOTE | 2024-10-27 10:44 | DVHDS2 ---
Discharge Summary Date of Admission Oct 21, 2024 at 14:54 Date of Discharge: Oct 27, 2024 Admitting Diagnosis Lower abdominal pain over the vulvar skin cancer Wounds: Vulvar cancer Labs/Diagnostic Data: Laboratory Results Test 10/22/24 04:29 10/21/24 10:00 10/21/24 09:00 White Blood Count 5.5 10^3/uL (4.4-10.8) Red Blood Count 4.27 10^6/uL (4.0-5.20) Hemoglobin 12.7 g/dL (12.2-16.2) Hematocrit 37.8 % (36.0-46.0) Mean Corpuscular Volume 88.4 fL (80.0-100.0) Mean Corpuscular Hemoglobin 29.7 pg (28.0-32.0) Mean Corpuscular Hemoglobin Concent 33.6 g/dL (32.0-36.0) Red Cell Distribution Width 15.3 % (11.8-14.3) Platelet Count 273 10^3/uL (140-450) Mean Platelet Volume 7.8 fL (6.9-10.8) Neutrophils (%) (Auto) 52.2 % (37.0-80.0) Lymphocytes (%) (Auto) 36.5 % (10.0-50.0) Monocytes (%) (Auto) 6.9 % (0.0-12.0) Eosinophils (%) (Auto) 3.8 % (0.0-7.0) Basophils (%) (Auto) 0.6 % (0.0-2.0) Neutrophils # (Auto) 2.9 10 ^3/uL (1.6-8.6) Lymphocytes # (Auto) 2.0 10 ^3/uL (0.4-5.4) Monocytes # (Auto) 0.4 10 ^3/uL (0-1.3) Eosinophils # (Auto) 0.2 10 ^3/uL (0-0.8) Basophils # (Auto) 0 10 ^3/uL (0-0.2) Nucleated Red Blood Cells 0.1 % Sodium Level 145 mmol/L (136-145) Potassium Level 3.7 mmol/L (3.5-5.1) Chloride Level 107 mmol/L (98-107) Carbon Dioxide Level 29 mmol/L (20-31) Anion Gap 9 (5-15) Blood Urea Nitrogen 20 mg/dL (9-23) Creatinine 0.62 mg/dL (0.550-1.02) Glomerular Filtration Rate Calc 96 mL/min (>90) BUN/Creatinine Ratio 32.3 (10.0-20.0) Serum Glucose 84 mg/dL (74-106) Calcium Level 9.8 mg/dL (8.7-10.4) Total Bilirubin 0.3 mg/dL (0.2-1.0) Aspartate Amino Transferase (AST) 10 U/L (<34) Alanine Aminotransferase (ALT) < 9 U/L (7-40) Alkaline Phosphatase 87 U/L (46-116) Total Protein 5.7 g/dL (5.7-8.2) Albumin 3.7 g/dL (3.2-4.8) Urine Color Yellow (Yellow) Urine Clarity Clear (Clear) Urine pH 5.5 (5.0-9.0) Urine Specific [place] 1.024 (1.001-1.035) Urine Protein Negative (Negative) Urine Ketones Trace (Negative) Urine Blood Negative /uL (Negative) Urine Nitrite Negative (Negative) Urine Bilirubin Negative (Negative) Urine Urobilinogen Normal mg/dL (Negative) Urine Leukocyte Esterase 2+ /uL (Negative) Urine RBC 2 /hpf (0 - 4) Urine Microscopic WBC 1 /HPF (0-5) Urine Squamous Epithelial Cells Few /hpf (<5) Urine Calcium Oxalate Crystals Few (None Seen) Urine Bacteria None seen /hpf (None Seen) Urine Hyaline Casts Few /lpf (0 - 2) Urine Mucus Few (None Seen) Urine Yeast (Budding) Occasional /hpf (None Urine Glucose Normal mg/dL (Normal) Lactic Acid Level 1.3 mmol/L (0.4-2.0) Other Laboratory Tests 10/22/24 04:29 Brief Hx & Hospital Course: 69-year-old female with a history of vulvar cancer facility treatment at [facility], [place] history of chronic intractable pain due to chronic lumbar stenosis history of splenic artery and resume 15 mm which is calcified came in for generalized weakness found to have UTI treated with Rocephin. Cultures grew E coli Patient has had open wound vulvar area because of cancer cultures grew E coli sensitive to Rocephin and Cipro. Patient has had splenic artery aneurysm 50 mm which is old and calcified advised outpatient follow up MRI lumbar spine showed severe DJD changes several levels spine surgery was consulted and advised conservative management. Discharged home on Cipro and [place]. She was advised to follow up with the primary Dr and at [facility], [place] Consults/Reason for consult None Operations or Procedures None Condition at Discharge: Fair Final Diagnosis/Problems List # Vulvular Cancer - Pain Control - Refusing treatment # Intractable pain likely due to chronic lumbar stenosis-MRI lumbar spine shows severe DJD changes at several levels, spine surgery consult appreciated advised conservative management # Splenic Artery Aneurysm 15mm calcified - Outpatient followup # Acute Cystitis: Urine cultures growing E coli, -continue Rocephin # Vulvar wound infection with E coli: Continue Rocephin sensitive to Cipro Discharge Disposition: Home Discharge Instruct/Medications Diet: Cardiac 2g Na,low cholest Activity: Light activity Follow Up/Referral: Follow up with the primary Dr in one week Follow up with the [facility] [place] for vulvar cancer Medications: Cipro [place] [facility] (Time taken for discharge summary 39 minutes) Discharge Statement: "Patient was advised to return to the ER or call 911 if any headaches, dizziness, shortness of breath, chest pain, abdominal pain, bleeding, fevers, or worsening of medical condition. Patient was counseled about treatment plan, medications, possible side effects, patientverbalized understanding. All questions were answered to the best of my ability. This discharge took greater then 30 minutes in planning, reviewing documentation, counseling the patient, and discussing with other team members." ASSESSMENT ASSESSMENT Hospital Course Improved Assessment # Vulvular Cancer - Pain Control - Refusing treatment # Intractable pain likely due to chronic lumbar stenosis-MRI lumbar spine shows severe DJD changes at several levels, spine surgery consult appreciated advised conservative management # Splenic Artery Aneurysm 15mm calcified - Outpatient followup # Acute Cystitis: Urine cultures growing E coli, -continue Rocephin # Vulvar wound infection with E coli: Continue Rocephin sensitive to Cipro Date of Service: Oct 27, 2024 Billing Provider: ANABELA DANIELLE MD Common Visit Codes: [id number] DISCH DAY >30min ANABELA DANIELLE MD Oct 27, 2024 10:44
== END 2024-10-27 13:00 | disposition home or self-care (01) | DRG 758 ==
LOC: ER 07:18 → OVERFLOW 14:54 → CENTRAL 18:32
PROVIDERS: ADMIT Family Medicine; ATTEND Family Medicine
DX: N76.2 Acute vulvitis (principal); N30.00 Acute cystitis without hematuria; M51.369 Other intervertebral disc degeneration, lumbar region without mention of lumbar back pain or lower extremity pain; I72.8 Aneurysm of other specified arteries; C51.9 Malignant neoplasm of vulva, unspecified; M48.07 Spinal stenosis, lumbosacral region; M48.062 Spinal stenosis, lumbar region with neurogenic claudication; B96.20 Unspecified Escherichia coli [E. coli] as the cause of diseases classified elsewhere; J45.909 Unspecified asthma, uncomplicated; F17.210 Nicotine dependence, cigarettes, uncomplicated; M47.896 Other spondylosis, lumbar region; G89.29 Other chronic pain; M43.17 Spondylolisthesis, lumbosacral region; Z79.899 Other long term (current) drug therapy; Z79.2 Long term (current) use of antibiotics
CPT/HCPCS: 36415; 71250; 72148; 74176; 74177; 80048; 80053; 81001; 83605; 85025; 87040; 87077; 87186; 87205; 96365; 96375; 97110; 97116; 97163; 97530; 99291; G0378; J2405

== ENCOUNTER 2024-11-10 09:06 | Outpatient (CLI) | payer MEDICARE, MEDICAID ==
[~2024-11-10 09:06] MED LIST changes: -BACDST PO; -CEPH500C PO; +CIPR-173 PO; +HYDR1TAB97 PO
[2024-11-10 10:11] LABS: Hematocrit 44.1 % (36.0-46.0); Hemoglobin 15.1 g/dL (12.2-16.2); Mean Corpuscular Hemoglobin 30.5 pg (28.0-32.0); Mean Corpuscular Volume 89.2 fL (80.0-100.0); Nucleated Red Blood Cells % 0.0 %
[2024-11-10 10:18] LABS: Alanine Aminotransferase 14 U/L (7-40); Albumin 4.6 g/dL (3.2-4.8); Alkaline Phosphatase 73 U/L (46-116); Anion Gap 9 (5-15); BUN/Creatinine Ratio 30.0 (10.0-20.0); Blood Urea Nitrogen 18 mg/dL (9-23); Carbon Dioxide 28 mmol/L (20-31); Cholesterol 187 mg/dL (< 200); Glucose 95 mg/dL (74-106); Potassium 3.6 mmol/L (3.5-5.1); Sodium 145 mmol/L (136-145); Total Protein 7.0 g/dL (5.7-8.2); Triglycerides 70 mg/dL (< 150)
[2024-11-10 10:19] LABS: Bilirubin, Total 1.3 mg/dL (0.2-1.0); Calcium 10.4 mg/dL (8.7-10.4); Chloride 108 mmol/L (98-107); HDL Cholesterol 68 mg/dL (40-59)
[2024-11-10 11:19] LABS: Hepatitis A Total Antibody Positive (Negative); Hepatitis B Surface Antigen Negative (Negative)
[2024-11-10 11:20] LABS: Hepatitis C Antibody Reactive (Negative)
== END 2024-11-10 17:00 | disposition home or self-care (01) ==
LOC: LAB 09:06
PROVIDERS: ATTEND Licensed Practical Nurse
DX: E55.9 Vitamin D deficiency, unspecified (principal); Z13.6 Encounter for screening for cardiovascular disorders; Z12.11 Encounter for screening for malignant neoplasm of colon; Z13.29 Encounter for screening for other suspected endocrine disorder; Z13.220 Encounter for screening for lipoid disorders; Z00.01 Encounter for general adult medical examination with abnormal findings; Z13.1 Encounter for screening for diabetes mellitus; Z79.899 Other long term (current) drug therapy
CPT/HCPCS: 36415; 80053; 80061; 82306; 83036; 84443; 85025; 86704; 86706; 86708; 86780; 86803; 87340

== ENCOUNTER → 2025-03-17 | Outpatient (CLI) | payer MEDICARE, MEDICAID ==
[2025-03-17 08:55] LABS: Hematocrit 41.6 % (36.0-46.0); Hemoglobin 14.1 g/dL (12.2-16.2); Mean Corpuscular Hemoglobin 30.0 pg (28.0-32.0); Mean Corpuscular Volume 88.8 fL (80.0-100.0); Nucleated Red Blood Cells % 0.0 %
[2025-03-17 09:09] LABS: INR 1.11 (0.9-1.15); Partial Thromboplastin Time 26.5 SEC (24.5-34.5); Prothrombin Time 11.6 sec (9.3-11.8)
[2025-03-17 09:18] LABS: Urine Protein, UAD TRACE (Negative)
[2025-03-17 09:26] LABS: Alanine Aminotransferase 13 U/L (7-40); Albumin 4.3 g/dL (3.2-4.8); Alkaline Phosphatase 67 U/L (46-116); BUN/Creatinine Ratio 22.7 (10.0-20.0); Bilirubin, Total 1.0 mg/dL (0.2-1.0); Blood Urea Nitrogen 15 mg/dL (9-23); Calcium 9.5 mg/dL (8.7-10.4); Carbon Dioxide 30 mmol/L (20-31); Glucose 94 mg/dL (74-106); Potassium 3.8 mmol/L (3.5-5.1); Sodium 144 mmol/L (136-145); Total Protein 7.1 g/dL (5.7-8.2)
[2025-03-17 09:47] LABS: Anion Gap 9 (5-15); Chloride 105 mmol/L (98-107)
== END | disposition home or self-care (01) ==
LOC: LAB 08:26
PROVIDERS: ATTEND Internal Medicine Medical Oncology
DX: Z01.812 Encounter for preprocedural laboratory examination (principal); C51.9 Malignant neoplasm of vulva, unspecified; N39.0 Urinary tract infection, site not specified; D53.8 Other specified nutritional anemias; M79.89 Other specified soft tissue disorders; R79.1 Abnormal coagulation profile; R97.0 Elevated carcinoembryonic antigen [CEA]
CPT/HCPCS: 36415; 80053; 81001; 85025; 85610; 85730; 87086